=== PATIENT | female | born 1940 | race Caucasian/White ===

== ENCOUNTER → 2016-05-31 | Outpatient (CLI) | payer MEDICARE ==
--- NOTE | 2016-05-31 11:32 | REP ---
Duplex extremity venous ultrasound: Right lower extremity. History: History of DVT. Right lower extremity pain. Not currently on blood thinners. Findings: The deep veins are anechoic and fully compressible from the groin to the popliteal fossa in the right lower extremity. Color flow imaging is homogeneous. Spectral Doppler interrogation demonstrates intact respiratory variation in flow and normal manual augmentation of flow. There is no evidence of deep vein thrombosis. Impression: Negative right lower extremity duplex venous ultrasound. No evidence of deep vein thrombosis. Signed by Ernesto Aranda MD 05/31/2016 11:24 A
== END ==
LOC: M RAD 10:48
PROVIDERS: ATTEND Physician Assistant Medical
DX: M79.661 Pain in right lower leg (principal)

== ENCOUNTER → 2016-07-04 | Outpatient (REF) | payer MEDICARE ==
[2016-07-04 17:55] LABS: MEAN CORPUSCULAR HEMOGLOBIN 33.3 pg (27.0-33.0); MEAN CORPUSCULAR HGB CONC 30.1 g/dl (32.0-36.5); MEAN CORPUSCULAR VOLUME 110.7 fl (80.0-96.0); RED CELL DISTRIBUTION WIDTH 18.4 % (11.5-14.5)
[2016-07-04 18:28] LABS: ALBUMIN 3.8 GM/DL (3.2-5.2); ALBUMIN/GLOBULIN RATIO 1.19 (1.00-1.93); ALKALINE PHOSPHATASE 93 U/L (45-117); ALT/SGPT 22 U/L (12-78); ANION GAP 12 MEQ/L (8-16); AST/SGOT 32 U/L (15-37); BILIRUBIN,TOTAL 0.6 MG/DL (0.2-1.0); BLOOD UREA NITROGEN 15 MG/DL (7-18); CALCIUM LEVEL 9.1 MG/DL (8.8-10.2); CARBON DIOXIDE LEVEL 28 MEQ/L (21-32); CHLORIDE LEVEL 98 MEQ/L (98-107); CREATININE FOR GFR 0.65 MG/DL (0.55-1.02); GLOMERULAR FILTRATION RATE > 60.0 (>39); GLUCOSE, FASTING 218 MG/DL (83-110); POTASSIUM SERUM 4.3 MEQ/L (3.5-5.1); SODIUM LEVEL 138 MEQ/L (136-145)
== END ==
LOC: M LAB REF 16:20
PROVIDERS: ATTEND Surgery
DX: I87.311 Chronic venous hypertension (idiopathic) with ulcer of right lower extremity (principal); E11.9 Type 2 diabetes mellitus without complications
CPT/HCPCS: 11042; 11045; 36415; 80053; 83036; 85027; G0463

== ENCOUNTER → 2016-07-24 | Outpatient (CLI) | payer MEDICARE ==
--- NOTE | 2016-07-24 14:19 | REP ---
Right lower extremity deep vein duplex venous reflux study. There is no reflux identified in the common femoral vein or greater saphenous vein/common femoral vein junction. There is no reflux in the greater saphenous vein at the mid thigh or knee. There is no reflux in the lower saphenous vein. No reflux is identified in the femoral vein proximally in midportion or distally or in the popliteal vein. Impression: There is no evidence of venous reflux in the right lower extremity. Signed by Asael Berkowitz MD 07/24/2016 02:11 P
== END ==
LOC: M RAD 11:33
PROVIDERS: ATTEND Surgery
DX: I87.311 Chronic venous hypertension (idiopathic) with ulcer of right lower extremity (principal)

== ENCOUNTER → 2016-07-31 | Outpatient (REF) | payer MEDICARE | LOC: M LAB REF 16:40 | PROVIDERS: ATTEND Surgery | DX: E11.622 Type 2 diabetes mellitus with other skin ulcer (principal); L97.811 Non-pressure chronic ulcer of other part of right lower leg limited to breakdown of skin ==

== ENCOUNTER → 2016-08-02 | Outpatient (REF) | payer MEDICARE ==
[2016-08-02 13:08] LABS: ALBUMIN 3.4 GM/DL (3.2-5.2); BILIRUBIN,TOTAL 0.7 MG/DL (0.2-1.0); CALCIUM LEVEL 8.7 MG/DL (8.8-10.2); CREATININE FOR GFR 0.96 MG/DL (0.55-1.02); TOTAL PROTEIN 6.8 GM/DL (6.4-8.2)
[2016-08-02 13:09] LABS: POTASSIUM SERUM 5.5 MEQ/L (3.5-5.1)
== END ==
LOC: M SFHCADAM 07:51
PROVIDERS: ATTEND Physician Assistant Medical
DX: E78.4 Other hyperlipidemia (principal); E11.40 Type 2 diabetes mellitus with diabetic neuropathy, unspecified; E11.9 Type 2 diabetes mellitus without complications; E03.9 Hypothyroidism, unspecified

== ENCOUNTER → 2016-08-07 | Outpatient (CLI) | payer MEDICARE ==
[~2016-08-07] MED LIST: ISOVUE-370 76% 100ML VIAL (Q9967) As Ordered ONE
--- NOTE | 2016-08-11 09:13 | REP ---
Clinical: Chronic venous hypertension with right lower extremity ulcer. Technique: CT angiogram is performed from the lung bases through the lower extremities using 100 ml Isovue 370 intravenous contrast material. Axial images were obtained in the arterial phase of enhancement with subsequent coronal and sagittal re-formations as well as MIP and 3D reconstructions. Findings: There is a right renal mass which cannot be classified as cyst and requires evaluation. Finding is concerning for renal cell carcinoma. Few adjacent retroperitoneal lymph nodes are identified and measure up to 11 mm. Spleen demonstrates stable 2.2 cm hypodense lesion cyst with hemangioma. Pancreas, gallbladder, and bilateral adrenal glands are normal. The enteric system is without obstruction or acute inflammatory process. Pelvis demonstrates normal bladder and evidence for prior hysterectomy. No ascites. Mild atherosclerotic changes of the abdominal aorta to the bifurcation is appreciated with minimal scattered atheromatous plaque. Moderate amount of calcified plaque are identified at the origins of the celiac access and superior mesenteric artery - both of which are normal in caliber and enhancement. Solitary bilateral renal arteries are identified without plaque. The inferior mesenteric artery is identified below the level of the renal arteries and normal in caliber and enhancement. Right lower extremity demonstrates normal caliber and enhancement of the common femoral artery, profunda femoris, and proximal to mid superficial femoral artery. There is complete occlusion of the distal superficial femoral artery of approximately 5 cm length with reconstitution of the popliteal artery by collateral vessels. The popliteal artery appears narrowed/stenotic and poor patchy enhancement through the popliteal artery and trifurcation is noted through the calf to the level of the ankle with at best minimal continuation enhancement of the posterior tibial artery and patchy enhancement to the anterior tibial artery. Left lower extremity demonstrates normal caliber and enhancement of the common femoral artery, profunda femoris, and superficial femoral artery. There is gradual narrowing through the distal superficial femoral artery and popliteal artery due to noncalcified atheromatous plaquing and decreased patchy enhancement through the trifurcation is noted into the calf with diminished sporadic enhancement of the posterior tibial artery to the ankle and essentially no appropriate enhancement of the anterior tibial or peroneal arteries. Impression: 1. Right renal mass must be considered neoplastic and requires urology consultation. Small adjacent lymph nodes up to 11 mm noted. 2. Angiographic evaluation with decreased enhancement to the bilateral lower extremities as detailed above (right greater than left) including occlusion of the left distal superficial femoral artery. Signed by Kenny Hatch MD 08/11/2016 09:12 A
== END ==
LOC: M RAD 14:15
PROVIDERS: ATTEND Surgery
DX: I87.311 Chronic venous hypertension (idiopathic) with ulcer of right lower extremity (principal)
CPT/HCPCS: 75635; Q9967

== ENCOUNTER → 2016-08-28 | Outpatient (REF) | payer MEDICARE ==
[2016-08-28 19:44] LABS: ANION GAP 9 MEQ/L (8-16); BLOOD UREA NITROGEN 8 MG/DL (7-18); CALCIUM LEVEL 8.4 MG/DL (8.8-10.2); CARBON DIOXIDE LEVEL 29 MEQ/L (21-32); CHLORIDE LEVEL 96 MEQ/L (98-107); CREATININE FOR GFR 0.85 MG/DL (0.55-1.02); GLOMERULAR FILTRATION RATE > 60.0 (>39); GLUCOSE, FASTING 132 MG/DL (83-110); POTASSIUM SERUM 4.6 MEQ/L (3.5-5.1); SODIUM LEVEL 134 MEQ/L (136-145)
== END ==
LOC: M LAB REF 18:39
PROVIDERS: ATTEND Nurse Practitioner Family
DX: E87.6 Hypokalemia (principal)

== ENCOUNTER → 2016-09-04 | Outpatient (REF) | payer MEDICARE ==
[2016-09-04 18:58] LABS: MEAN CORPUSCULAR HEMOGLOBIN 29.1 pg (27.0-33.0); MEAN CORPUSCULAR HGB CONC 28.8 g/dl (32.0-36.5); MEAN CORPUSCULAR VOLUME 101.3 fl (80.0-96.0); PLATELET COUNT, AUTOMATED 223 k/mm3 (150-450); RED CELL DISTRIBUTION WIDTH 18.5 % (11.5-14.5); WHITE BLOOD COUNT 9.6 K/mm3 (4.0-10.0)
[2016-09-04 19:19] LABS: ALBUMIN 3.5 GM/DL (3.2-5.2); ALKALINE PHOSPHATASE 93 U/L (45-117); ALT/SGPT 14 U/L (12-78); ANION GAP 10 MEQ/L (8-16); AST/SGOT 33 U/L (15-37); BILIRUBIN,TOTAL 0.8 MG/DL (0.2-1.0); BLOOD UREA NITROGEN 15 MG/DL (7-18); CALCIUM LEVEL 8.6 MG/DL (8.8-10.2); CARBON DIOXIDE LEVEL 26 MEQ/L (21-32); CHLORIDE LEVEL 96 MEQ/L (98-107); CREATININE FOR GFR 0.78 MG/DL (0.55-1.02); GLOMERULAR FILTRATION RATE > 60.0 (>39); GLUCOSE, FASTING 162 MG/DL (83-110); POTASSIUM SERUM 5.1 MEQ/L (3.5-5.1); SODIUM LEVEL 132 MEQ/L (136-145)
[2016-09-04 20:39] LABS: BANDS 7 % (< 11); BASOPHILS 4 % (0-4); EOSINOPHILS 2 % (0-5)
[2016-09-04 20:40] LABS: ANISOCYTOSIS 2+; HYPOCHROMASIA 2+; OVALOCYTES 1+; POIKILOCYTOSIS 1+; POLYCHROMASIA 1+
[2016-09-04 20:41] LABS: ACANTHOCYTES 1+; SCHISTOCYTES 1+
== END ==
LOC: M SFHCADAM 11:26
PROVIDERS: ATTEND Physician Assistant Medical
DX: E11.622 Type 2 diabetes mellitus with other skin ulcer (principal); I10 Essential (primary) hypertension
CPT/HCPCS: 80053; 85025; G0463

== ENCOUNTER → 2016-12-11 | Outpatient (REF) | payer MEDICARE ==
[~2016-12-11] MED LIST changes: +ASPI81TA21 PO; +CEPH500C PO; +DRIS50002 PO; +DULO1CAP PO; +FURO40TA2 PO; +GABA-282 PO; +GLYB5TA; +HYDR-3713 PO; -ISOVUE-370 76% 100ML VIAL (Q9967) As Ordered ONE; +JENT2.5T5 PO; +LEVO50TA5 PO; +LIDO1OIN2 TOP; +LISI-538 PO; +MAGN500T5 PO; +NYST10PW TOP; +PROBCAP4 PO; +TOUJ1.2I SC; +VITMTA PO; +XARE20TA PO
[2016-12-11 20:00] LABS: ALBUMIN 3.7 GM/DL (3.2-5.2); ALBUMIN/GLOBULIN RATIO 0.93 (1.00-1.93); ALKALINE PHOSPHATASE 142 U/L (45-117); ALT/SGPT 24 U/L (12-78); ANION GAP 9 MEQ/L (8-16); AST/SGOT 28 U/L (15-37); BILIRUBIN,TOTAL 0.9 MG/DL (0.2-1.0); BLOOD UREA NITROGEN 22 MG/DL (7-18); CALCIUM LEVEL 9.1 MG/DL (8.8-10.2); CARBON DIOXIDE LEVEL 32 MEQ/L (21-32); CHLORIDE LEVEL 97 MEQ/L (98-107); CREATININE FOR GFR 0.77 MG/DL (0.55-1.02); GLOMERULAR FILTRATION RATE > 60.0 (>39); GLUCOSE, FASTING 216 MG/DL (83-110); POTASSIUM SERUM 4.2 MEQ/L (3.5-5.1); SODIUM LEVEL 138 MEQ/L (136-145); TOTAL PROTEIN 7.7 GM/DL (6.4-8.2)
== END ==
LOC: M SFHCADAM 15:56
PROVIDERS: ATTEND Physician Assistant Medical
DX: E11.40 Type 2 diabetes mellitus with diabetic neuropathy, unspecified (principal); G90.50 Complex regional pain syndrome I, unspecified; I10 Essential (primary) hypertension; G47.33 Obstructive sleep apnea (adult) (pediatric); I87.2 Venous insufficiency (chronic) (peripheral); D45 Polycythemia vera; Z79.82 Long term (current) use of aspirin; Z79.899 Other long term (current) drug therapy

== ENCOUNTER 2016-12-16 13:36 | Emergency (ER) | payer MEDICARE ==
[~2016-12-16] VITALS: Ht 152.4 cm; Wt 102.7 kg
[2016-12-16] MEDS ORDERED: XARE20TA PO (13:58)
[2016-12-16] MEDS ORDERED: HYDR-3713 PO (13:58)
[2016-12-16] MEDS ORDERED: LISI-538 PO (13:58)
[2016-12-16] MEDS ORDERED: LEVO50TA5 PO (13:58)
[2016-12-16] MEDS ORDERED: FURO40TA2 PO (13:58)
[2016-12-16] MEDS ORDERED: GLYB5TA (13:58)
[2016-12-16] MEDS ORDERED: JENT2.5T5 PO (13:58)
[2016-12-16] MEDS ORDERED: GABA-282 PO (13:58)
[2016-12-16] MEDS ORDERED: TOUJ1.2I SC (13:58)
[2016-12-16 16:35] LABS: VENOUS BASE EXCESS 1.8 (-2.0-2.0); VENOUS PARTIAL PRESSURE CO2 48.3 mmHg (38.0-50.0); VENOUS PARTIAL PRESSURE O2 85.8 mmHg (30.0-50.0); VENOUS TOTAL CO2 29.3 MEQ/L (24.0-28.0)
[2016-12-16 16:38] LABS: ADD MANUAL DIFFER YES; MEAN CORPUSCULAR HGB CONC 29.5 g/dl (32.0-36.5); PLATELET COUNT, AUTOMATED 196 k/mm3 (150-450); RED CELL DISTRIBUTION WIDTH 21.4 % (11.5-14.5); WHITE BLOOD COUNT 8.8 K/mm3 (4.0-10.0)
[2016-12-16 16:59] LABS: ALBUMIN/GLOBULIN RATIO 0.95 (1.00-1.93); ALKALINE PHOSPHATASE 149 U/L (45-117); ALT/SGPT 25 U/L (12-78); ANION GAP 15 MEQ/L (8-16); AST/SGOT 39 U/L (15-37); BILIRUBIN,DIRECT 0.4 MG/DL (0.0-0.2); BILIRUBIN,TOTAL 1.2 MG/DL (0.2-1.0); BLOOD UREA NITROGEN 21 MG/DL (7-18); CALCIUM LEVEL 9.2 MG/DL (8.8-10.2); CARBON DIOXIDE LEVEL 25 MEQ/L (21-32); CHLORIDE LEVEL 95 MEQ/L (98-107); CREATININE FOR GFR 0.81 MG/DL (0.55-1.02); GLOMERULAR FILTRATION RATE > 60.0 (>39); GLUCOSE, FASTING 344 MG/DL (83-110); POTASSIUM SERUM 4.8 MEQ/L (3.5-5.1); SODIUM LEVEL 135 MEQ/L (136-145); TOTAL PROTEIN 8.2 GM/DL (6.4-8.2)
[2016-12-16 17:28] LABS: BANDS 1 % (< 11); BASOPHILS 2 % (0-4); EOSINOPHILS 1 % (0-5)
[2016-12-16 17:29] LABS: ANISOCYTOSIS 2+; HYPOCHROMASIA 1+
[2016-12-16] MEDS ORDERED: NORCO, ANEXSIA 5/325MG TABLET (HYDROcodone/ACETAMINOPHEN) As Ordered ONE (18:02)
[2016-12-16] MEDS ORDERED: NORCO, ANEXSIA 5/325MG TABLET (HYDROcodone/ACETAMINOPHEN) PO ONE (18:15)
[2016-12-16] MEDS ORDERED: KETOROLAC 30 MG/ML VIAL (J1885) IV ONE (18:15)
[2016-12-16] MEDS ORDERED: KETOROLAC 60 MG/2 ML VIAL (J1885) IM ONE (18:30)
--- NOTE | 2016-12-16 19:20 | REPUSA ---
CLINICAL HISTORY: RUQ pain. TECHNIQUE: Realtime sonographic images were obtained in multiple projections. COMMENTS: The liver shows fatty infiltration without evidence of mass or defect. There is no intra or extrahep atic biliary ductal dilatation. The common bile duct measures 6 mm. The gallbladder is distended bu t without evidence of calculi. . Positive Rodriguez sign is reported. The gallbladder wall is not thick ened measuring 3 mm and there is no pericholecystic fluid. There is no abdominal ascites. The visualized portions of abdominal aorta present no abnormalities. There is limited visualization of the pancreas due to overlying bowel gases. The right kidney measur es 10.6 x 4.2 cm with an upper pole complex cyst measuring 4.1 x 3.6 x 3.5 cm. There is a lower pole right renal stone measuring 9 mm. IMPRESSION: 1. Fatty liver. 2. The gallbladder is distended but without evidence of calculi. . Positive Rodriguez sign is reported. Chronic acalculous cholecystitis is not excluded. Consider follow-up with hepatobiliary scan. 3. Right renal complex cyst. 4. Right renal stone.
[2016-12-16] MEDS ORDERED: GASTROGRAFIN SOLUTION 30ML (Q9963) As Ordered ONE (19:29)
[2016-12-16] MEDS ORDERED: GASTROGRAFIN SOLUTION 30ML PO ONE (19:30)
[2016-12-16 19:46] VITALS: BP 199/77
[2016-12-16] MEDS ORDERED: GASTROGRAFIN SOLUTION 30ML (Q9963) PO ONE (20:00)
--- NOTE | 2016-12-17 07:37 | REP ---
CHEST X-RAY AP LATERAL: 12/16/2016. Clinical history: Fatigue. Comparison: 07/31/2012, 08/10/2006 chest x-ray. Findings: Two views again show a dorsal column stimulator line but the stimulator unit appears to have been removed or relocated. The stimulator line courses across the posterior back into the cervical thoracic junction region into the lower cervical spine as before. Two-view show elevation of the right diaphragm. Heart is enlarged with left atrial and ventricular enlargement even allowing for portable technique. There is venous hypertension. I do not see definite effusion or dense consolidation. The aorta is mildly tortuous but normal for age. Airway intact. No widening of the mediastinum. Degenerative changes AC and glenohumeral joints as well as the spine. Impression: 1. Cardiomegaly with left atrial and ventricular enlargement and pulmonary venous hypertension. No lula edema, definite effusion or dense consolidation. 2. Elevated right diaphragm and a dorsal column stimulator lead again seen. Degenerative changes shoulders and spine. Signed by Jose Pruett MD 12/17/2016 08:06 A
--- NOTE | 2016-12-17 08:01 | ECGEPIP ---
Stationary ECG Study [facility] - ED Test Date: 2016-12-16 Pat Name: PORTILLO CHEEMA Department: Room: - Gender: F Oil Rigger: tk : [id number] Requested By: Shankar Riojas Order Number: [id number] Reading MD: Shankar Kline Measurements Intervals [place] Rate: 73 P: ID: 0 QRS: -4 QRSD: 88 T: 11 QT: 396 QTc: 439 Interpretive Statements SINUS RHYTHM WITH 1ST DEGREE AV BLOCK POSSIBLE ANTERIOR MYOCARDIAL INFARCTION, PROBABLY OLD Electronically Signed On 12-17-2016 8:00:58 EDT by Shankar Kline
--- NOTE | 2016-12-18 12:34 | ED PDOC ---
Post-Departure Follow-Up juliann chambers faxed formal report of us for fu Glil Arellano MD Dec 18, 2016 12:34
== END 2016-12-16 19:59 | disposition home or self-care (01) ==
LOC: M ED 13:36
DX: E11.65 Type 2 diabetes mellitus with hyperglycemia (principal); K80.50 Calculus of bile duct without cholangitis or cholecystitis without obstruction; I10 Essential (primary) hypertension
CPT/HCPCS: 36415; 71020; 76705; 80048; 80076; 81001; 82550; 82553; 82803; 83036; 84484; 85025; 93005; 93041; 94760; 96372; 96374; 99285; J1885; Q9963

== ENCOUNTER 2017-01-21 19:19 | Inpatient (IN) | payer MEDICARE ==
[~2017-01-21] VITALS: Ht 152.4 cm; Wt 106.5 kg
[~2017-01-21 19:19] MED LIST changes: -ASPI81TA21 PO; -CEPH500C PO; -DRIS50002 PO; -DULO1CAP PO; -LIDO1OIN2 TOP; -MAGN500T5 PO; -NYST10PW TOP; -PROBCAP4 PO; -VITMTA PO
[2017-01-21] MEDS ORDERED: ACETAMINOPHEN 325 MG TAB PO ONE (20:00)
[2017-01-21] MEDS ORDERED: ERTAPENEM SODIUM 1 GM in NS MINI-BAG PLUS 50 ML IV ONE (20:00)
[2017-01-21] MEDS ORDERED: VANCOMYCIN HCL 1,000 MG, VIAL MATE ADAPTER 1 EACH in D5W 250 ML IV ONE (20:00)
[2017-01-21] MEDS ORDERED: DRIS50002 PO (20:29)
[2017-01-21] MEDS ORDERED: PROBCAP4 PO (20:29)
[2017-01-21] MEDS ORDERED: MAGN500T5 PO (20:29)
[2017-01-21] MEDS ORDERED: LIDO1OIN2 TOP (20:29)
[2017-01-21] MEDS ORDERED: VITMTA PO (20:29)
[2017-01-21] MEDS ORDERED: ASPI81TA21 PO (20:29)
[2017-01-21 21:29] LABS: ADD MANUAL DIFFER YES; MEAN CORPUSCULAR HEMOGLOBIN 25.1 pg (27.0-33.0); MEAN CORPUSCULAR HGB CONC 28.1 g/dl (32.0-36.5); MEAN CORPUSCULAR VOLUME 89.6 fl (80.0-96.0); PLATELET COUNT, AUTOMATED 239 k/mm3 (150-450); RED CELL DISTRIBUTION WIDTH 21.6 % (11.5-14.5)
[2017-01-21 21:42] LABS: ALBUMIN 3.2 GM/DL (3.2-5.2); ALBUMIN/GLOBULIN RATIO 0.89 (1.00-1.93); ALKALINE PHOSPHATASE 137 U/L (45-117); ALT/SGPT 15 U/L (12-78); ANION GAP 9 MEQ/L (8-16); AST/SGOT 28 U/L (15-37); BILIRUBIN,DIRECT 0.6 MG/DL (0.0-0.2); BILIRUBIN,TOTAL 1.5 MG/DL (0.2-1.0); BLOOD UREA NITROGEN 20 MG/DL (7-18); CALCIUM LEVEL 8.5 MG/DL (8.8-10.2); CARBON DIOXIDE LEVEL 29 MEQ/L (21-32); CHLORIDE LEVEL 93 MEQ/L (98-107); CREATININE FOR GFR 0.84 MG/DL (0.55-1.02); GLOMERULAR FILTRATION RATE > 60.0 (>39); GLUCOSE, FASTING 215 MG/DL (83-110); POTASSIUM SERUM 4.6 MEQ/L (3.5-5.1); SODIUM LEVEL 131 MEQ/L (136-145); TOTAL PROTEIN 6.8 GM/DL (6.4-8.2)
[2017-01-21 22:34] LABS: ANISOCYTOSIS 3+; BANDS 2 % (< 11); BASOPHILS 2 % (0-4); HYPOCHROMASIA 1+; POLYCHROMASIA 1+
[2017-01-22] MEDS ORDERED: LIDOCAINE 5% OINT 30 GM TOP PRN (00:45)
[2017-01-22] MEDS ORDERED: PERCOCET 5MG/325MG TAB PO PRN (00:45)
[2017-01-22] MEDS ORDERED: ONDANSETRON 4MG/2ML VIAL (J2405) IV PRN (00:45)
[2017-01-22] MEDS ORDERED: GLUCAGON FOR INJ 1 MG VIAL (J1610) SC PRN (01:00)
[2017-01-22] MEDS ORDERED: DEXTROSE 50% 50 ML SYRINGE IV PRN (01:00)
[2017-01-22] MEDS ORDERED: GLUCOSE 4 GM CHEW TABLET PO PRN (01:00)
[2017-01-22] MEDS ORDERED: LEVEMIR (INSULIN DETEMIR) 1 UNITS/0.01ML SC ONE (01:00)
[2017-01-22] MEDS ORDERED: FUROSEMIDE 40 MG TAB PO ONE (01:00)
--- NOTE | 2017-01-22 01:05 | HPEPDOC ---
Medical History and Physical Date of Admission 01/22/17 History and Physical PRIMARY CARE PROVIDER: Dr. Barrera Dasilva ATTENDING: Dr. Barrera Dasilva CHIEF COMPLAINT: AMS HISTORY OF PRESENT ILLNESS: This is a 76 -year-old female with PMHx IDDM, HTN, Nonobstructive CAD ( diagnosed in August 2016 at [facility]), hypothyroidism, diastolic heart failure, obstructive sleep apnea on CPAP, chronic lower extremity venous stasis ulcers, polycythemia, hypertension, RSD with spinal stimulator who presents with lethargy. It was noted the patient has become increasingly lethargic and disoriented today as well as complaining of chills. She was hypoxic on presentation when the EMS arrived. In the ED she was febrile, with notable leukocytosis. She denies shortness of breath/cough/palpitations. No nausea/vomiting. She denied any abdominal pain however was tender to palpation on exam. The patient does have lower extremity ulcers, which she follows up with wound care in [place]. They requested that we not consult Dr. Pal as they were not very pleased with him in the past. PAST MEDICAL HISTORY: As per HPI PAST SURGICAL HISTORY: HYST, [place] release, stimulator, Port SOCIAL HISTORY: History of tobacco abuse, quit in the 1980s. Denies any alcohol or illicit drug use. Lives with family. FAMILY HISTORY: No history of heart or lung disease. ALLERGIES: Please see below. REVIEW OF SYSTEMS: HEENT: Denies sore throat/headache CARDIOVASCULAR: Denies chest pain/palpitations RESPIRATORY: Denies shortness of breath/cough GASTROINTESTINAL: denies nausea/vomiting GENITOURINARY: Denies dysuria/urinary urgency. MUSCULOSKELETAL: Denies myalgias/arthralgias NEUROLOGICAL: Denies any focal weakness HOME MEDICATIONS: Please see below. PHYSICAL EXAMINATION: Vitals: (see below) General: No acute distress, laying comfortably in bed. HEENT: Moist mucous membranes. Neck: No JVD or lymphadenopathy Cardiac: RRR Pulm: Diminished breath sounds at the bases b/l. Difficult to auscultate given her body habitus. Minimal accessory wheezing. No rhonchi. No stridor. No use of accessory muscles. Right chest port intact. No surrounding erythema or signs of infection however the patient does complain that it's tender around the region. Abd: Tenderness to palpation greatest at the left upper quadrant. Patient also has erythema with chronic skin changes of the lower abdominal region. This was tender on palpation, as well as warm. ND + BS Ext: Bilateral lower extremities with 1+ edema. Left lower extremity does appear more erythematous and warm than the right. Distal pulses are intact. No cyanosis. Chronic bilateral lower extremity ulcers, with no significant drainage. Dressings appear to have serous fluid. No pus. Lower extremities are tender to palpation. LABORATORY DATA: See below. IMAGING: CT chest/CT abdomen and pelvis/lower extremity ultrasound pending MICROBIOLOGY: Please see below. ASSESSMENT/PLAN: 1. Sepsis likely secondary to cellulitis as well as possible pneumonia. Notable fevers and leukocytosis. The patient is being started on broad-spectrum antibiotics pending further imaging. Although she does not have cough or sore throat, she does presents with dyspnea and hypoxia, with altered mental status raising suspicion for pneumonia. Blood cultures pending. ABG. Lactic acid within normal limits. Of note, the area surrounding her right port is tender however no erythema or signs of cellulitis/infection. She states the port has been bothering her since Sunday when she last had her blood drawn for her polycythemia. We will obtain blood cultures from the port as well. We may need to entertain removing the port pending her clinical progress. 2. Metabolic encephalopathy- likely secondary to sepsis. 3. Diabetes mellitus- continue insulin regimen. Sliding scale insulin. 4. Nonobstructive CAD continue home meds 5. History of polycythemia vera with phlebotomy every other week 6. History of chronic venous stasis ulcers- refusing consult by Dr. Couch. 7. JARAD on CPAP 8. RDS status post spinal cord stimulator 9. History of diastolic heart failure compensated 10. History of hypothyroidism on levothyroxine 11. Patient on Xarelto, likely for prophylaxis as pt is prone to hypercoag states given her polycythemia vera. Due to prophylaxis on Xarelto Patient followed by Dr. Barrera Dasilva starting 01/22/17 at 7 AM.. Vital Signs Vital Signs Date Time Temp Pulse Resp B/P (MAP) Pulse Ox O2 Delivery O2 Flow Rate FiO2 01/22/17 00:19 70 98 01/21/17 23:34 100.1 01/21/17 22:34 22 01/21/17 19:30 Room Air Laboratory Data Labs 24H Laboratory Tests 2 01/21/17 20:53: Neutrophils 89H, Band Neutrophils 2, Lymphocytes (Manual) 2L, Monocytes (Manual ) 5, Basophils (Manual) 2, Platelet Estimate NORMAL, Polychromasia 1+, Hypochromasia 1+, Anisocytosis 3+, Urine Appearance HAZY, Urine Color YELLOW, Urine pH 5.0, Urine Specific [place] 1.017, Urine Protein 1+H, Urine Glucose (UA ) NEGATIVE, Urine Ketones TRACEH, Urine Urobilinogen 0.2, Urine Bilirubin NEGATIVE, Urine Leukocyte Esterase NEGATIVE, Urine Blood NEGATIVE, Urine Nitrite NEGATIVE, Urine WBC (Auto) 6H, Urine RBC (Auto) 2, Urine Hyaline Casts ( Auto) 0, Urine Bacteria (Auto) NEGATIVE, Urine Squamous Epithelial Cells 5, Urine Sperm (Auto) , Anion Gap 9, Glomerular Filtration Rate > 60.0, Lactic Acid Level 1.6, Calcium Level 8.5L, Aspartate Amino Transf (AST/SGOT) 28, Alanine Aminotransferase (ALT/SGPT) 15, Alkaline Phosphatase 137H, Total Bilirubin 1.5H, Direct Bilirubin 0.6H, Total Protein 6.8, Albumin 3.2, Albumin/ Globulin Ratio 0.89L 01/21/17 23:52: Bedside Glucose (Misc Panel) 234H CBC/BMP Laboratory Tests 01/21/17 20:53 Red Blood Count 4.97, Mean Corpuscular Volume 89.6, Mean Corpuscular Hemoglobin 25.1 L, Mean Corpuscular Hemoglobin Concent 28.1 L, Red Cell Distribution Width 21.6 H Microbiology Microbiology 01/21/17 Blood Culture, Received Pending 01/21/17 Urine Culture, Received Pending Home Medications Scheduled (Jesusita Cueva) 300 Unit/Ml Inj, 20 UNITS SC QHS (Jentadueto 2.5-1000 mg) 1 Tab Tab, 1 TAB PO BIDWM Aspirin (Aspir-Low) 81 Mg Tab, 81 MG PO QHS Furosemide (Furosemide) 40 Mg Tab, 40 MG PO BID Gabapentin (Gabapentin) 300 Mg Cap, 300 MG PO TID Lactobacillus Acidophilus (Probiotic) 1 Cap Cap, 1 CAP PO DAILY Levothyroxine Sodium (Synthroid) 50 Mcg Tab, 50 MCG PO QAM Lisinopril (Lisinopril) 20 Mg Tab, 20 MG PO DAILY Magnesium Oxide (Magnesium) 500 Mg Tab, 500 MG PO QHS Multivitamins *[facility]* (Thera M Plus *[facility]*) 1 Tab Tab, 1 TAB PO QHS Rivaroxaban (Xarelto) 20 Mg Tab, 20 MG PO DAILY Vitamin D (Drisdol) 50,000 Unit Cap, 50,000 UNIT PO QWEEK Scheduled PRN Acetaminophen/Hydrocodone (Hydrocodone/Acetaminophen 5-325 mg) 1 Tab Tab, 1 TAB PO Q6H PRN for PAIN Lidocaine HCl (Lidocaine 5% Ointment) 1 Dose/35.44 Gm Oint, 1 DOSE TOP DAILY PRN for PAIN APPLIES TO LEG ULCERS Allergies Coded Allergies: Bee Venom (Verified Allergy, Unknown, 01/21/17) CARLTON BONILLA MD Jan 22, 2017 01:05
[2017-01-22] MEDS ORDERED: GASTROGRAFIN SOLUTION 30ML (Q9963) PO ONE ×3 (01:30→11:30)
[2017-01-22] MEDS ORDERED: ISOVUE-370 76% 100ML VIAL (Q9967) As Ordered ONE (01:44)
--- NOTE | 2017-01-22 01:45 | PHACANCOPD ---
PHARMACY VANCOMYCIN DOSING Pt Demographics Demographics Patient Age:76 , Weight:104.000 , Gender: female Adjusted Body Weight Date: 01/22/17, Adjusted Body Weight: [68.9] Kg Vancomycin Vancomycin indication: SEPSIS SECONDARY TO CELLULITIS,PNEUMONIA Vancomycin Target Ranges: 15-20 mcg/ml Vancomycin Load Y/N: No Load Dose Date Time Vancomycin Load Dose: Date: Time: Vancomycin Dose Date: 01/22/17. Current Vancomycin Dose: 750 MG IV Q12H] Intermittent Dosing?: No Labs Labs Laboratory Tests 01/21/17 20:53 Red Blood Count 4.97, Mean Corpuscular Volume 89.6, Mean Corpuscular Hemoglobin 25.1 L, Mean Corpuscular Hemoglobin Concent 28.1 L, Red Cell Distribution Width 21.6 H Micro Microbiology 01/22/17 Blood Culture, Received Pending 01/21/17 Blood Culture, Received Pending 01/21/17 Urine Culture, Received Pending Creatinine Clearance Date:01/22/17. Creatinine Clearance: [60]. CALCULATED Pending Labs VANCOMYCIN TROUGH DUE Assessment and Plan Maintaining Current Dose?: Yes Reason for dose change: No Dose Change Pharmacist Note Pharmacist Note Date: 01/22/17. Pharmacist note:76 YOF admitted with sepsis secondary to LEcellulitis and possible pneumonia.60",104kg,SCR0.84,calculated CRCL=60,allergy =bee vanom,receiving pip/tazo 3.375 gm iv p5xyitt and vancomycin per Pharmacy consult.Received Vanco 1 gm in ED@2300-will continue regimen at 750mg IV [id number] beginning at 1000. first trough is scheduled to be drawn - will continue to follow levels and labs [facility] Jan 22, 2017 01:45
[2017-01-22] MEDS: MORPHINE 2 MG/ML 1ML SYRINGE IV PRN ×2 (03:07→08:31)
[2017-01-22 05:53] LABS: ABG BASE EXCESS 2.8 (-2.0-2.0); ABG PARTIAL PRESSURE CO2 35.4 mmHg (35.0-45.0); ABG PARTIAL PRESSURE O2 89.4 mmHg (75.0-100.0); ABG TOTAL CO2 27.1 MEQ/L (23.0-31.0); ABG pH (ARTERIAL) 7.484 UNITS (7.350-7.450)
[2017-01-22] MEDS: LEVOTHYROXINE 50MCG TABLET (0.05MG) PO SCH (06:00)
[2017-01-22] MEDS: ACETAMINOPHEN TAB 650MG DOSE (2X325MG) PO PRN (06:15)
--- NOTE | 2017-01-22 07:17 | REP ---
Portable chest, 01/21/2017, 08:13 p.m., single AP view, patient sitting: Comparison is 12/16/2016. There has been interval placement of a right IJ Zdwoen-O-Umro with the tip in the superior vena cava in satisfactory location. There is no pneumothorax. Cardiomegaly is again noted, unchanged. There is pulmonary venous engorgement versus incomplete inspiratory effort as a change from the prior study. Elevation of the right hemidiaphragm and cervical spine spinal stimulator are again identified, unchanged. Signed by Asael Berkowitz MD 01/22/2017 07:09 A
[2017-01-22] MEDS: HumaLOG INSULIN (NovoLOG) PER UNIT SC SCH ×4 (08:39→20:20)
[2017-01-22 09:01] LABS: BASO # 0.1 K/mm3 (0.0-0.2); BASO % 0.8 % (0.0-1.0); EOS # 0.2 K/mm3 (0.0-0.50); EOS % 1.3 % (0.0-3.0); LARGE UNSTAINED CELL # 0.2 K/mm3 (0.0-0.4); LYMPH # 0.8 K/mm3 (1.5-4.5); LYMPH % 4.4 % (24.0-44.0); MEAN CORPUSCULAR HEMOGLOBIN 25.7 pg (27.0-33.0); MEAN CORPUSCULAR HGB CONC 28.7 g/dl (32.0-36.5); MEAN CORPUSCULAR VOLUME 89.5 fl (80.0-96.0); MONO # 0.4 K/mm3 (0.0-0.8); MONO % 2.9 % (0.0-5.0); NEUTROPHILS # 13.2 K/mm3 (1.8-7.7); NEUTROPHILS % 89.6 % (36.0-66.0); PLATELET COUNT, AUTOMATED 201 k/mm3 (150-450); RED CELL DISTRIBUTION WIDTH 21.8 % (11.5-14.5); WHITE BLOOD COUNT 14.7 K/mm3 (4.0-10.0)
[2017-01-22 09:03] LABS: ADD MORPHOLOGY? YES
[2017-01-22 09:12] VITALS: BP 134/64
[2017-01-22 09:18] LABS: ALBUMIN 2.9 GM/DL (3.2-5.2); ALBUMIN/GLOBULIN RATIO 0.88 (1.00-1.93); ALKALINE PHOSPHATASE 107 U/L (45-117); ALT/SGPT 15 U/L (12-78); ANION GAP 10 MEQ/L (8-16); AST/SGOT 31 U/L (15-37); BILIRUBIN,TOTAL 1.2 MG/DL (0.2-1.0); BLOOD UREA NITROGEN 22 MG/DL (7-18); CALCIUM LEVEL 8.5 MG/DL (8.8-10.2); CARBON DIOXIDE LEVEL 27 MEQ/L (21-32); CHLORIDE LEVEL 96 MEQ/L (98-107); CREATININE FOR GFR 0.81 MG/DL (0.55-1.02); GLOMERULAR FILTRATION RATE > 60.0 (>39); GLUCOSE, FASTING 252 MG/DL (83-110); POTASSIUM SERUM 4.3 MEQ/L (3.5-5.1); SODIUM LEVEL 133 MEQ/L (136-145); TOTAL PROTEIN 6.2 GM/DL (6.4-8.2)
[2017-01-22 09:21] LABS: ANISOCYTOSIS 2+
[2017-01-22] MEDS: RIVAROXABAN 20 MG TAB (XARELTO) PO SCH (09:54)
[2017-01-22] MEDS: LACTOBACILLUS ACIDOPHILUS CAP (BACID) PO SCH (09:55)
[2017-01-22] MEDS: GABAPENTIN 300 MG CAP PO SCH ×3 (09:55→20:21)
[2017-01-22] MEDS: FUROSEMIDE 40 MG TAB PO SCH ×3 (09:56→20:25)
[2017-01-22] MEDS: LISINOPRIL 20 MG TAB PO SCH (09:56)
[2017-01-22] MEDS: PIPERACILLIN/TAZOBACTAM SOD 3.375 GM in D5W MINI-BAG PLUS 50 ML IV SCH ×3 (09:56→20:21)
[2017-01-22] MEDS ORDERED: VANCOMYCIN HCL 1,000 MG, VIAL MATE ADAPTER 1 EACH in D5W 250 ML IV SCH (10:00)
[2017-01-22] MEDS ORDERED: VANCOMYCIN HCL 750 MG, VIAL MATE ADAPTER 1 EACH in D5W 250 ML IV SCH (10:00)
[2017-01-22] MEDS: NORCO, ANEXSIA 5/325MG TABLET (HYDROcodone/ACETAMINOPHEN) PO PRN ×4 (10:54→23:07)
--- NOTE | 2017-01-22 10:55 | IPNPDOC ---
Subjective Date Seen The patient was seen on 01/22/17. Subjective Chief Complaint/HPI The patient is a 76-year-old female admitted with a reason for visit of Sepsis. Events since last encounter c/o BLE pain. States chronic pain and unchanged c/w outpatient pain. Constitutional: Denies: Chills, Fever, Night Sweats ENT: Denies: Head Aches, Ear Pain, Dysphagia Skin: Denies: Rash, Lesions, Breakdown Pulmonary: Reports: Dyspnea Cardiovascular: Denies: Chest Pain, Palpitations, Orthopnea, Paroxysmal Noc. Dyspnea, Lt Headedness Gastrointestinal: Denies: Nausea, Vomiting, Abdominal Pain, Diarrhea, Constipation Genitourinary: Denies: Dysuria, Frequency, Incontinence, Retention Psych: Reports: Mood Normal, Anxiety, Denies: Depression, Memory Issues Objective Physical Examination General Exam: Positive: Alert, No Acute Distress, Negative: Cooperative (resistant and hesitant to tx) Eye Exam: Positive: PERRLA, Conjunctiva & lids normal, EOMI, Negative: Sclera icteric Neck Exam: Positive: Supple, Negative: JVD, thyromegaly Chest Exam: Positive: Clear to auscultation, Normal air movement Heart Exam: Positive: Rate Normal, Regular Rhythm, Normal S1, Normal S2, Murmurs (EDMUNDO 3/6), Negative: Rubs Telemetry: Positive: No significant arrhythmia Abdomen Exam: Positive: Normal bowel sounds, Soft, Negative: Tenderness, Hepatospenomegaly Extremity Exam: Positive: Normal pulses, Other (erythema and warmth on LLE up to knee. very tender on palpation), Negative: Clubbing, Cyanosis, Edema Skin Exam: Positive: Other skin issue (erythema to BLE. dressings intact) Psych Exam: Positive: Anxiety Assessment /Plan Problems (1) Sepsis Problem Text: D1 Zosyn/Vanco favor 2 soft-tissue infection (but obvious concern-DCS) 01/22 Tm 102 5:50, WBC 14.7 (20K) 01/21 LA 1.6 01/22 CT AP P 01/22 TTE P 01/22 CT chest: Lungs demonstrate cardiomegaly and chronic changes as described above with few scattered noncalcified nodules up to 4 mm which are nonspecific. Consider follow-up examination in 6 months. 2. Right renal mass incompletely evaluated. 3. Elevation of the right hemidiaphragm secondary to hepatomegaly. 01/22 resp panel - 01/21 BCX NG x2 01/21 UCX NG x 1 (2) RSD (reflex sympathetic dystrophy) Problem Text: DCS not functioning 01/22 increased [place] 5-10 q4H prn and + Gudelia-Colace BID (3) Cellulitis and abscess of left leg Status: Acute Problem Text: rx as per sepsis follows with [place] wound care-1M prior debrided L foot ulcer (4) JARAD (obstructive sleep apnea) Status: Chronic Problem Text: encouraged to bring in home CPAP (5) Diabetes mellitus with hyperglycemia, with long-term current use of insulin Status: Chronic Problem Text: HD Toujeo 20 units, Jentadueto 2.5/500 BID Continue Levemir 20 qhs here (6) Diastolic CHF Status: Chronic Response to Treatment: Stable Problem Text: Euvolemic on HD fur 40 BID (7) PVD (peripheral vascular disease) Status: Chronic Problem Text: 08/2016 arteriogram done at [facility]-per son severe R femoral stenosis- no intervention done-obtain records Plan/VTE VTE Prophylaxis Ordered?: Yes (Xarelto on Home Dose) VS, I&O, [facility] Vital Signs/I&O Vital Signs Date Time Temp Pulse Resp B/P (MAP) Pulse Ox O2 Delivery O2 Flow Rate FiO2 01/22/17 09:56 144/64 01/22/17 09:30 93 Room Air 01/22/17 09:12 8 01/22/17 09:12 2.0 01/22/17 09:12 99.0 73 I&O- Last 24 Hours up to 6 AM 01/22/17 06:00 Intake Total 1420 ml Output Total 850 ml Balance 570 ml Laboratory Data 24H LABS Laboratory Tests 2 01/21/17 20:53: Neutrophils 89H, Band Neutrophils 2, Lymphocytes (Manual) 2L, Monocytes (Manual ) 5, Basophils (Manual) 2, Platelet Estimate NORMAL, Polychromasia 1+, Hypochromasia 1+, Anisocytosis 3+, Urine Appearance HAZY, Urine Color YELLOW, Urine pH 5.0, Urine Specific [place] 1.017, Urine Protein 1+H, Urine Glucose (UA ) NEGATIVE, Urine Ketones TRACEH, Urine Urobilinogen 0.2, Urine Bilirubin NEGATIVE, Urine Leukocyte Esterase NEGATIVE, Urine Blood NEGATIVE, Urine Nitrite NEGATIVE, Urine WBC (Auto) 6H, Urine RBC (Auto) 2, Urine Hyaline Casts ( Auto) 0, Urine Bacteria (Auto) NEGATIVE, Urine Squamous Epithelial Cells 5, Urine Sperm (Auto) , Anion Gap 9, Glomerular Filtration Rate > 60.0, Lactic Acid Level 1.6, Calcium Level 8.5L, Aspartate Amino Transf (AST/SGOT) 28, Alanine Aminotransferase (ALT/SGPT) 15, Alkaline Phosphatase 137H, Total Bilirubin 1.5H, Direct Bilirubin 0.6H, Total Protein 6.8, Albumin 3.2, Albumin/ Globulin Ratio 0.89L 01/21/17 23:52: Bedside Glucose (Misc Panel) 234H 01/22/17 05:36: Blood Gas Bicarbonate Standard 27.0H, Arterial Blood pH 7.484H, Arterial Blood Partial Pressure CO2 35.4, Arterial Blood Partial Pressure O2 89.4, Arterial Blood Total CO2 27.1, Arterial Blood HCO3 26.0, Arterial Blood Base Excess 2.8H , Arterial Blood Oxygen Saturation 97.4 01/22/17 08:15: Bedside Glucose (Misc Panel) 280H 01/22/17 08:36: White Blood Count 14.7H, Red Blood Count 4.53, Hemoglobin 11.6L, Hematocrit 40.5 , Mean Corpuscular Volume 89.5, Mean Corpuscular Hemoglobin 25.7L, Mean Corpuscular Hemoglobin Concent 28.7L, Red Cell Distribution Width 21.8H, Platelet Count 201, Neutrophils (%) (Auto) 89.6H, Lymphocytes (%) (Auto) 4.4L, Monocytes (%) (Auto) 2.9, Eosinophils (%) (Auto) 1.3, Basophils (%) (Auto) 0.8, Neutrophils # (Auto) 13.2H, Lymphocytes # (Auto) 0.8L, Monocytes # (Auto) 0.4, Eosinophils # (Auto) 0.2, Basophils # (Auto) 0.1, Large Unclassified Cells % 1.0 , Large Unclassified Cells # 0.2, Platelet Estimate NORMAL, Anisocytosis 2+, Anion Gap 10, Glomerular Filtration Rate > 60.0, Blood Urea Nitrogen 22H, Creatinine 0.81, Sodium Level 133L, Potassium Level 4.3, Chloride Level 96L, Carbon Dioxide Level 27, Calcium Level 8.5L, Aspartate Amino Transf (AST/SGOT) 31, Alanine Aminotransferase (ALT/SGPT) 15, Alkaline Phosphatase 107, Total Bilirubin 1.2H, Total Protein 6.2L, Albumin 2.9L, C-Reactive Protein, Quantitative 14.00H, Albumin/Globulin Ratio 0.88L CBC/BMP Laboratory Tests 01/21/17 20:53 Red Blood Count 4.97, Mean Corpuscular Volume 89.6, Mean Corpuscular Hemoglobin 25.1 L, Mean Corpuscular Hemoglobin Concent 28.1 L, Red Cell Distribution Width 21.6 H 01/22/17 08:36 Red Blood Count 4.53, Mean Corpuscular Volume 89.5, Mean Corpuscular Hemoglobin 25.7 L, Mean Corpuscular Hemoglobin Concent 28.7 L, Red Cell Distribution Width 21.8 H, Neutrophils (%) (Auto) 89.6 H, Lymphocytes (%) (Auto) 4.4 L, Monocytes ( %) (Auto) 2.9, Eosinophils (%) (Auto) 1.3, Basophils (%) (Auto) 0.8, Neutrophils # (Auto) 13.2 H, Lymphocytes # (Auto) 0.8 L, Monocytes # (Auto) 0.4 , Eosinophils # (Auto) 0.2, Basophils # (Auto) 0.1, Calcium Level 8.5 L, Aspartate Amino Transf (AST/SGOT) 31, Alanine Aminotransferase (ALT/SGPT) 15, Alkaline Phosphatase 107, Total Bilirubin 1.2 H, Total Protein 6.2 L, Albumin 2.9 L Microbiology Microbiology 01/22/17 Blood Culture, Received Pending 01/21/17 Blood Culture, Received Pending 01/21/17 Urine Culture, Received Pending Kellen Mclaughlin Jan 22, 2017 10:55 Daniel Muñoz M.D. Jan 22, 2017 14:59
[2017-01-22] MEDS ORDERED: GASTROGRAFIN SOLUTION 30ML PO ONE (11:00)
[2017-01-22 12:00] VITALS: BP 132/61
--- NOTE | 2017-01-22 14:43 | REP ---
Clinical: Dyspnea and fever. Findings: Cardiomegaly is appreciated along with mild possibly chronic pulmonary vascular congestion. Atherosclerotic changes to the thoracic aorta and coronary arteries noted without aortic aneurysm. Chronic, age-related interstitial changes are appreciated without consolidation, pleural effusion or significant mass. Lingular scarring is suggested. Few small noncalcified nodules are identified measuring up to 4.5 mm diameter and are nonspecific. No obvious adenopathy. Tracheobronchial tree is patent. Surrounding musculoskeletal structures demonstrate age-related changes without focal osseous abnormality. Coronal re-formations demonstrate elevated right hemidiaphragm secondary to hepatomegaly. Limited evaluation of the upper abdomen includes 4 cm incompletely evaluated right renal mass. The bilateral adrenal glands are normal. Impression: 1. Lungs demonstrate cardiomegaly and chronic changes as described above with few scattered noncalcified nodules up to 4 mm which are nonspecific. Consider follow-up examination in 6 months. 2. Right renal mass incompletely evaluated. 3. Elevation of the right hemidiaphragm secondary to hepatomegaly. Signed by Kenny Hatch MD 01/22/2017 02:35 P
--- NOTE | 2017-01-22 14:51 | REP ---
Clinical: Sepsis. Comparison: 08/07/2016, 11/06/2012 Findings: Hepatosplenomegaly is again appreciated along with hypodensity in the spleen which appears relatively stable when compared to 2013. No focal hepatic lesion identified by noncontrast evaluation. The gallbladder is distended but without evidence for acute cholecystitis. Pancreas bilateral adrenal glands and left kidney appear normal. Right kidney includes 4.7 cm mass-like lesion which appears to have increased from prior examinations and is concerning for renal cell carcinoma. The enteric system is without obstruction or acute inflammatory process. Colonic diverticula noted without acute diverticulitis. Pelvis demonstrates normal bladder and evidence for prior hysterectomy. No ascites. No free air. Small scattered mesenteric and retroperitoneal lymph nodes measuring up to approximately 13 mm cannot be excluded. Osseous structures demonstrate degenerative changes without focal osseous abnormality Impression: 1. Hepatosplenomegaly with relatively stable hypodense lesion in the spleen similar to 2013. 2. 4.7 cm mass lesion in the right kidney warrants further investigation to exclude renal cell carcinoma. 3. Few scattered mesenteric and retroperitoneal lymph nodes measuring up to 13 mm are of uncertain etiology. 4. Colonic diverticula without acute diverticulitis. Signed by Kenny Hatch MD 01/22/2017 02:44 P
[2017-01-22] MEDS ORDERED: NORCO, ANEXSIA 5/325MG TABLET (HYDROcodone/ACETAMINOPHEN) PO PRN (15:30)
[2017-01-22 16:00] VITALS: BP 141/63
[2017-01-22 19:51] VITALS: BP 118/57
[2017-01-22] MEDS: MULTIVITAMINS/MINERALS THERAP 1 TAB PO SCH (20:20)
[2017-01-22] MEDS: DOCUSATE SODIUM 100 MG CAP PO SCH (20:20)
[2017-01-22] MEDS: ASPIRIN 81 MG ENTERIC TAB PO SCH (20:20)
[2017-01-22] MEDS: LEVEMIR (INSULIN DETEMIR) 1 UNITS/0.01ML SC SCH (20:20)
--- NOTE | 2017-01-22 20:55 | ECHO ---
DATE OF PROCEDURE: 01/22/2017 REFERRING PHYSICIAN: Dr. Parsons INDICATION: Sepsis. HEIGHT: 152 cm WEIGHT: 104 kg Dimensions IVS: 1.0 LV: 4.8 LVPW: 1.0 LA: 4.3 Aorta: 2.5 FINDINGS: The study is of difficult technical quality corresponding to patient's body habitus. The patient is in sinus rhythm. Left ventricle is of normal size and systolic function. I estimate ejection fraction (EF) around 65-70%. Based on technical limitations of the study, subtle wall motion abnormalities certainly cannot be ruled out. Right ventricle is dilated and appears at least mildly hypokinetic. Left atrium appears at least mildly enlarged, right atrium is severely enlarged. Aortic valve is mildly sclerotic. There are also degenerative abnormalities of mitral valve with mitral annular calcifications. Tricuspid valve appears normal. Pulmonic valve was not well seen. Trivial pericardial effusion is noted. Inferior vena cava is mildly dilated. Aortic root is normal. Aortic arch and abdominal aorta were not well seen. Doppler interrogation of aortic valve reveals no insufficiency and trivial stenosis (mean gradient 10 mmHg). There is trace mitral insufficiency and approximately moderate tricuspid insufficiency. Calculated pulmonary artery pressure is at least in 60s or even higher corresponding to moderately severe pulmonary hypertension. Mitral inflow pattern and tissue Doppler imaging of mitral annulus reveal grade 2 diastolic dysfunction (E prime velocities of septal and lateral mitral annulus are 5.2 and 6.0 cm/s respectively). CONCLUSIONS: 1. Study is of fair technical quality. 2. Normal left ventricle (LV) size and systolic function, grade 2 diastolic dysfunction. 3. Dilated mildly hypokinetic right ventricle. 4. High central venous pressure and at least moderately severe pulmonary hypertension. 5. Mild aortic stenosis. COMMENTS: Subacute bacterial endocarditis (SBE) prophylaxis is not recommended. [facility]
--- NOTE | 2017-01-22 21:47 | PHACANCOPD ---
PHARMACY VANCOMYCIN DOSING Pt Demographics Demographics Patient Age:76 , Weight:104.400 , Gender: female Adjusted Body Weight Date: 01/22/17, Adjusted Body Weight: [68.9] Kg Events Past 24 Hours Events Past 24 Hours: NO: Dialysis, Diuretic Therapy, Change in CrCl, Fever, Elevation in WBC, Pending Diagnostics, Pending Procedures, Other Vancomycin Vancomycin indication: SEPSIS SECONDARY TO CELLULITIS,PNEUMONIA Vancomycin Target Ranges: 15-20 mcg/ml Vancomycin Load Y/N: No Load Dose Date Time Vancomycin Load Dose: Date: Time: Vancomycin Dose Date: 01/22/17. Current Vancomycin Dose: 1000 MG IV Q12H] Intermittent Dosing?: No Labs Labs Item Value Date Time White Blood Count 14.7 K/mm3 H 01/22/1736 Creatinine 0.81 MG/DL 01/22/17835 Vancomycin Level Trough 11.0 UG/ML 01/22/172054 Vital Signs Label Value Date Time Patient Temperature 97.6 degrees F 01/22/171950 Temperature Source Temporal 01/22/171950 Micro Microbiology 01/22/17 Blood Culture, Received Pending 01/21/17 Blood Culture - Preliminary, Resulted No growth after 24 hours . All specim... 01/22/17 Respiratory Virus Panel (PCR) (VISHAL) - Final, Complete 01/21/17 Urine Culture, Received Pending Creatinine Clearance Date:01/22/17. Creatinine Clearance: [60]. CALCULATED Pending Labs VANCOMYCIN TROUGH DUE 01/23@2099 Assessment and Plan Maintaining Current Dose?: No Reason for dose change: Trough too low Pharmacist Note Pharmacist Note Date: 01/22/17. Pharmacist note:Trough of 11 is below target range. Dose increased to 1000mg q12 with a trough ordered for 01-23 @2099. Will continue to monitor and make adjustments as needed. ENRRIQUE ESCAMILLA PHARMACY Jan 22, 2017 21:47
[2017-01-22] MEDS: VANCOMYCIN HCL 1,000 MG, VIAL MATE ADAPTER 1 EACH in D5W 250 ML IV SCH (21:50)
[2017-01-22 23:09] VITALS: BP 118/75
[2017-01-23] MEDS: PIPERACILLIN/TAZOBACTAM SOD 3.375 GM in D5W MINI-BAG PLUS 50 ML IV SCH ×4 (02:04→21:16)
[2017-01-23 03:56] VITALS: BP 113/56
[2017-01-23 05:05] LABS: ADD MANUAL DIFFER YES; MEAN CORPUSCULAR HEMOGLOBIN 25.2 pg (27.0-33.0); MEAN CORPUSCULAR HGB CONC 28.2 g/dl (32.0-36.5); MEAN CORPUSCULAR VOLUME 89.6 fl (80.0-96.0); PLATELET COUNT, AUTOMATED 192 k/mm3 (150-450); RED CELL DISTRIBUTION WIDTH 21.8 % (11.5-14.5); WHITE BLOOD COUNT 10.7 K/mm3 (4.0-10.0)
[2017-01-23 05:23] LABS: ALBUMIN 2.5 GM/DL (3.2-5.2); ALBUMIN/GLOBULIN RATIO 0.64 (1.00-1.93); BILIRUBIN,TOTAL 1.1 MG/DL (0.2-1.0); CALCIUM LEVEL 8.6 MG/DL (8.8-10.2); CREATININE FOR GFR 0.97 MG/DL (0.55-1.02); GLOMERULAR FILTRATION RATE 59.1 (>39); MAGNESIUM LEVEL 1.7 MG/DL (1.8-2.4); POTASSIUM SERUM 3.8 MEQ/L (3.5-5.1); TOTAL PROTEIN 6.4 GM/DL (6.4-8.2)
[2017-01-23 05:43] LABS: ANISOCYTOSIS 2+; BANDS 1 % (< 11); BASOPHILS 2 % (0-4); EOSINOPHILS 2 % (0-5); HYPOCHROMASIA 3+; POIKILOCYTOSIS 2+
[2017-01-23 05:44] LABS: OVALOCYTES 2+; TOXIC GRANULATION 1+; TOXIC VACUOLATION 1+
[2017-01-23] MEDS: LEVOTHYROXINE 50MCG TABLET (0.05MG) PO SCH (06:01)
[2017-01-23] MEDS: NORCO, ANEXSIA 5/325MG TABLET (HYDROcodone/ACETAMINOPHEN) PO PRN ×3 (06:07→15:08)
--- NOTE | 2017-01-23 07:57 | IPNPDOC ---
Subjective Date Seen The patient was seen on 01/23/17. Subjective Chief Complaint/HPI The patient is a 76-year-old female admitted with a reason for visit of Sepsis. Events since last encounter Afebrile. PT involved, evaluating mobility. Pain controlled with [place]. dressing changes started per outpatient orders. CT abd/pelvis and CT chest completed. See reports in patient docs. Constitutional: Denies: Chills, Fever, Night Sweats ENT: Denies: Head Aches, Ear Pain, Dysphagia Skin: Reports: Breakdown (ulcerations to BLE) Pulmonary: Denies: Dyspnea, Cough Cardiovascular: Denies: Chest Pain, Palpitations, Orthopnea, Paroxysmal Noc. Dyspnea, Lt [place]ness Gastrointestinal: Denies: Nausea, Vomiting, Abdominal Pain, Diarrhea, Constipation Objective Physical Examination General Exam: Positive: Alert, No Acute Distress, Negative: Cooperative (resistant and hesitant to tx) Eye Exam: Positive: PERRLA, Conjunctiva & lids normal, EOMI, Negative: Sclera icteric Neck Exam: Positive: Supple, Negative: JVD, thyromegaly Chest Exam: Positive: Clear to auscultation, Normal air movement Heart Exam: Positive: Rate Normal, Regular Rhythm, Normal S1, Normal S2, Murmurs (EDMUNDO 3/6), Negative: Rubs Telemetry: Positive: No significant arrhythmia Abdomen Exam: Positive: Normal bowel sounds, Soft, Negative: Tenderness, Hepatospenomegaly Extremity Exam: Positive: Normal pulses, Other (erythema and warmth on LLE up to knee. very tender on palpation), Negative: Clubbing, Cyanosis, Edema Skin Exam: Positive: Other skin issue (erythema to BLE. dressings intact) Psych Exam: Positive: Anxiety Assessment /Plan Problems (1) Sepsis Problem Text: D2 Zosyn/Vanco favor 2 soft-tissue infection (but obvious concern-DCS) 01/23/17: WBC 10.7. Afebrile. 01/22 Tm 102 5:50, WBC 14.7 (20K) 01/21 LA 1.6 01/22 CT AP: . Hepatosplenomegaly with relatively stable hypodense lesion in the spleen similar to 2013. 2. 4.7 cm mass lesion in the right kidney warrants further investigation to exclude renal cell carcinoma. 3. Few scattered mesenteric and retroperitoneal lymph nodes measuring up to 13 mm are of uncertain etiology. 4. Colonic diverticula without acute diverticulitis. 01/22 TTE: 1. Study is of fair technical quality. 2. Normal left ventricle (LV) size and systolic function, grade 2 diastolic dysfunction. 3. Dilated mildly hypokinetic right ventricle. 4. High central venous pressure and at least moderately severe pulmonary hypertension. 5. Mild aortic stenosis. 01/22 CT chest: Lungs demonstrate cardiomegaly and chronic changes as described above with few scattered noncalcified nodules up to 4 mm which are nonspecific. Consider follow-up examination in 6 months. 2. Right renal mass incompletely evaluated. 3. Elevation of the right hemidiaphragm secondary to hepatomegaly. 01/22 resp panel - 01/21 BCX NG x2 01/21 UCX NG x 1 (2) RSD (reflex sympathetic dystrophy) Problem Text: 01/23/17: appears to have improved comfort today. DCS not functioning 01/22 increased [place] 5-10 q4H prn and + Gudelia-Colace BID (3) Cellulitis and abscess of left leg Status: Acute Problem Text: rx as per sepsis follows with [facility] wound care-1M prior debrided L foot ulcer (4) JARAD (obstructive sleep apnea) Status: Chronic Problem Text: 01/23/17: using at home CPAP. encouraged to bring in home CPAP (5) Diabetes mellitus with hyperglycemia, with long-term current use of insulin Status: Chronic Problem Text: HD Toujeo 20 units, Jentadueto 2.5/500 BID Continue Levemir 20 qhs here (6) Diastolic CHF Status: Chronic Response to Treatment: Stable Problem Text: Euvolemic on HD fur 40 BID (7) PVD (peripheral vascular disease) Status: Chronic Problem Text: 08/2016 arteriogram done at [facility]-per son severe R femoral stenosis- no intervention done-obtain records (8) Renal mass, right Problem Text: Noted on CT abd/pelvis. Family aware of follow with Dr. Rojas, urology in [place]. (9) Physical deconditioning Status: Acute Problem Text: 01/23 not safe per PT Plan/VTE VTE Prophylaxis Ordered?: Yes (Xarelto on Home Dose) VS, I&O, 24H, Fishbone Vital Signs/I&O Vital Signs Date Time Temp Pulse Resp B/P (MAP) Pulse Ox O2 Delivery O2 Flow Rate FiO2 01/23/17 06:07 18 Room Air 01/23/17 03:56 97.2 67 113/56 (75) 90 01/22/17 09:12 2.0 I&O- Last 24 Hours up to 6 AM 01/23/17 06:00 Intake Total 2140 ml Output Total 2600 ml Balance -460 ml Laboratory Data 24H LABS Laboratory Tests 2 01/22/17 08:15: Bedside Glucose (Misc Panel) 280H 01/22/17 08:36: White Blood Count 14.7H, Red Blood Count 4.53, Hemoglobin 11.6L, Hematocrit 40.5 , Mean Corpuscular Volume 89.5, Mean Corpuscular Hemoglobin 25.7L, Mean Corpuscular Hemoglobin Concent 28.7L, Red Cell Distribution Width 21.8H, Platelet Count 201, Neutrophils (%) (Auto) 89.6H, Lymphocytes (%) (Auto) 4.4L, Monocytes (%) (Auto) 2.9, Eosinophils (%) (Auto) 1.3, Basophils (%) (Auto) 0.8, Neutrophils # (Auto) 13.2H, Lymphocytes # (Auto) 0.8L, Monocytes # (Auto) 0.4, Eosinophils # (Auto) 0.2, Basophils # (Auto) 0.1, Large Unclassified Cells % 1.0 , Large Unclassified Cells # 0.2, Platelet Estimate NORMAL, Anisocytosis 2+, Anion Gap 10, Glomerular Filtration Rate > 60.0, Blood Urea Nitrogen 22H, Creatinine 0.81, Sodium Level 133L, Potassium Level 4.3, Chloride Level 96L, Carbon Dioxide Level 27, Calcium Level 8.5L, Aspartate Amino Transf (AST/SGOT) 31, Alanine Aminotransferase (ALT/SGPT) 15, Alkaline Phosphatase 107, Total Bilirubin 1.2H, Total Protein 6.2L, Albumin 2.9L, C-Reactive Protein, Quantitative 14.00H, Albumin/Globulin Ratio 0.88L 01/22/17 11:56: Bedside Glucose (Misc Panel) 172H 01/22/17 16:58: Bedside Glucose (Misc Panel) 213H 01/22/17 17:56: C-Reactive Protein, Quantitative 16.90H 01/22/17 20:18: Bedside Glucose (Misc Panel) 198H 01/22/17 20:55: C-Reactive Protein, Quantitative 15.30H, Vancomycin Level Trough 11.0 01/23/17 04:46: C-Reactive Protein, Quantitative 13.80H, Neutrophils 76H, Band Neutrophils 1, Lymphocytes (Manual) 10L, Monocytes (Manual) 9H, Eosinophils (Manual) 2, Basophils (Manual) 2, Toxic Granulation 1+, Toxic Vacuolation 1+, Platelet Estimate NORMAL, Hypochromasia 3+, Poikilocytosis 2+, Anisocytosis 2+, Ovalocytes 2+, Anion Gap 9, Glomerular Filtration Rate 59.1, Blood Urea Nitrogen 26H, Creatinine 0.97, Sodium Level 137, Potassium Level 3.8, Chloride Level 98, Carbon Dioxide Level 30, Calcium Level 8.6L, Aspartate Amino Transf ( AST/SGOT) 34, Alanine Aminotransferase (ALT/SGPT) 15, Alkaline Phosphatase 88, Total Bilirubin 1.1H, Total Protein 6.4, Albumin 2.5L, Magnesium Level 1.7L, Albumin/Globulin Ratio 0.64L CBC/BMP Laboratory Tests 01/22/17 08:36 Red Blood Count 4.53, Mean Corpuscular Volume 89.5, Mean Corpuscular Hemoglobin 25.7 L, Mean Corpuscular Hemoglobin Concent 28.7 L, Red Cell Distribution Width 21.8 H, Neutrophils (%) (Auto) 89.6 H, Lymphocytes (%) (Auto) 4.4 L, Monocytes ( %) (Auto) 2.9, Eosinophils (%) (Auto) 1.3, Basophils (%) (Auto) 0.8, Neutrophils # (Auto) 13.2 H, Lymphocytes # (Auto) 0.8 L, Monocytes # (Auto) 0.4 , Eosinophils # (Auto) 0.2, Basophils # (Auto) 0.1, Calcium Level 8.5 L, Aspartate Amino Transf (AST/SGOT) 31, Alanine Aminotransferase (ALT/SGPT) 15, Alkaline Phosphatase 107, Total Bilirubin 1.2 H, Total Protein 6.2 L, Albumin 2.9 L 01/23/17 04:46 Red Blood Count 4.85, Mean Corpuscular Volume 89.6, Mean Corpuscular Hemoglobin 25.2 L, Mean Corpuscular Hemoglobin Concent 28.2 L, Red Cell Distribution Width 21.8 H, Calcium Level 8.6 L, Aspartate Amino Transf (AST/SGOT) 34, Alanine Aminotransferase (ALT/SGPT) 15, Alkaline Phosphatase 88, Total Bilirubin 1.1 H, Total Protein 6.4, Albumin 2.5 L Microbiology Microbiology 01/22/17 Blood Culture - Preliminary, Resulted No growth after 24 hours . All specim... 01/21/17 Blood Culture - Preliminary, Resulted No growth after 24 hours . All specim... 01/22/17 Respiratory Virus Panel (PCR) (VISHAL) - Final, Complete 01/21/17 Urine Culture, Received Pending Kellen Mclaughlin Jan 23, 2017 07:57 Daniel Muñoz M.D. Jan 23, 2017 22:00
[2017-01-23 08:00] VITALS: BP 149/65
[2017-01-23] MEDS: HumaLOG INSULIN (NovoLOG) PER UNIT SC SCH ×4 (08:07→20:36)
[2017-01-23] MEDS: DOCUSATE SODIUM 100 MG CAP PO SCH ×2 (08:10→21:15)
[2017-01-23] MEDS: GABAPENTIN 300 MG CAP PO SCH ×3 (08:10→21:15)
[2017-01-23] MEDS: LACTOBACILLUS ACIDOPHILUS CAP (BACID) PO SCH (08:10)
[2017-01-23] MEDS: FUROSEMIDE 40 MG TAB PO SCH ×2 (08:10→15:06)
[2017-01-23] MEDS: RIVAROXABAN 20 MG TAB (XARELTO) PO SCH (08:10)
[2017-01-23] MEDS: LISINOPRIL 20 MG TAB PO SCH (08:12)
[2017-01-23] MEDS: VANCOMYCIN HCL 1,000 MG, VIAL MATE ADAPTER 1 EACH in D5W 250 ML IV SCH ×2 (10:30→22:28)
[2017-01-23 12:00] VITALS: BP 156/68
[2017-01-23 15:35] VITALS: BP 169/77
[2017-01-23 18:00] VITALS: BP 156/82
[2017-01-23 20:20] VITALS: BP 163/86
[2017-01-23] MEDS: MULTIVITAMINS/MINERALS THERAP 1 TAB PO SCH (21:14)
[2017-01-23] MEDS: LEVEMIR (INSULIN DETEMIR) 1 UNITS/0.01ML SC SCH (21:15)
[2017-01-23] MEDS: ASPIRIN 81 MG ENTERIC TAB PO SCH (21:15)
--- NOTE | 2017-01-23 22:16 | PHACANCOPD ---
PHARMACY VANCOMYCIN DOSING Pt Demographics Demographics Patient Age:76 , Weight:104.500 , Gender: female Adjusted Body Weight Date: 01/22/17, Adjusted Body Weight: [68.9] Kg Events Past 24 Hours Events Past 24 Hours: NO: Dialysis, Diuretic Therapy, Change in CrCl, Fever, Elevation in WBC, Pending Diagnostics, Pending Procedures, Other Vancomycin Vancomycin indication: SEPSIS SECONDARY TO CELLULITIS,PNEUMONIA Vancomycin Target Ranges: 15-20 mcg/ml Vancomycin Load Y/N: No Load Dose Date Time Vancomycin Load Dose: Date: Time: Vancomycin Dose Date: 01/23/17. Current Vancomycin Dose: 1000 MG IV Q12H] Intermittent Dosing?: No Labs Labs Item Value Date Time White Blood Count 10.7 K/mm3 H 01/23/17445 Creatinine 0.97 MG/DL 01/23/17445 Vancomycin Level Trough 17.3 UG/ML 01/23/172110 Vital Signs Label Value Date Time Patient Temperature 97.0 degrees F 01/23/172019 Temperature Source Temporal 01/23/172019 Micro Microbiology 01/22/17 Blood Culture - Preliminary, Resulted No growth after 24 hours . All specim... 01/21/17 Blood Culture - Preliminary, Resulted No Growth after 48 hours. All Specime... 01/22/17 Respiratory Virus Panel (PCR) (VISHAL) - Final, Complete 01/21/17 Urine Culture, Received Pending Creatinine Clearance Date:01/22/17. Creatinine Clearance: [60]. CALCULATED Assessment and Plan Maintaining Current Dose?: Yes Reason for dose change: No Dose Change Pharmacist Note Pharmacist Note Date: 01/22/17. Pharmacist note:Trough of 17.3 is within target range. will continue current dosing. Will continue to monitor and make adjustments as needed. ENRRIQUE ESCAMILLA PHARMACY Jan 23, 2017 22:16
[2017-01-24] MEDS: NORCO, ANEXSIA 5/325MG TABLET (HYDROcodone/ACETAMINOPHEN) PO PRN ×3 (01:43→20:54)
[2017-01-24 02:10] VITALS: BP 182/80
[2017-01-24] MEDS: PIPERACILLIN/TAZOBACTAM SOD 3.375 GM in D5W MINI-BAG PLUS 50 ML IV SCH (03:35)
[2017-01-24] MEDS: MORPHINE 2 MG/ML 1ML SYRINGE IV PRN (05:10)
[2017-01-24 05:22] LABS: ADD MANUAL DIFFER YES; MEAN CORPUSCULAR HEMOGLOBIN 26.1 pg (27.0-33.0); MEAN CORPUSCULAR HGB CONC 29.6 g/dl (32.0-36.5); MEAN CORPUSCULAR VOLUME 88.2 fl (80.0-96.0); PLATELET COUNT, AUTOMATED 214 k/mm3 (150-450); RED CELL DISTRIBUTION WIDTH 21.8 % (11.5-14.5); WHITE BLOOD COUNT 8.4 K/mm3 (4.0-10.0)
[2017-01-24 05:30] VITALS: BP 150/70
[2017-01-24 05:46] LABS: ALBUMIN 2.6 GM/DL (3.2-5.2); ALBUMIN/GLOBULIN RATIO 0.72 (1.00-1.93); ALKALINE PHOSPHATASE 130 U/L (45-117); ALT/SGPT 23 U/L (12-78); ANION GAP 6 MEQ/L (8-16); AST/SGOT 45 U/L (15-37); BILIRUBIN,TOTAL 0.9 MG/DL (0.2-1.0); BLOOD UREA NITROGEN 28 MG/DL (7-18); CALCIUM LEVEL 8.3 MG/DL (8.8-10.2); CARBON DIOXIDE LEVEL 32 MEQ/L (21-32); CHLORIDE LEVEL 99 MEQ/L (98-107); CREATININE FOR GFR 0.87 MG/DL (0.55-1.02); GLOMERULAR FILTRATION RATE > 60.0 (>39); GLUCOSE, FASTING 231 MG/DL (83-110); MAGNESIUM LEVEL 1.7 MG/DL (1.8-2.4); POTASSIUM SERUM 4.1 MEQ/L (3.5-5.1); SODIUM LEVEL 137 MEQ/L (136-145); TOTAL PROTEIN 6.2 GM/DL (6.4-8.2)
[2017-01-24 06:02] LABS: BASOPHILS 3 % (0-4); HYPOCHROMASIA 1+
[2017-01-24 06:03] LABS: ANISOCYTOSIS 2+; OVALOCYTES 1+; POIKILOCYTOSIS 1+
[2017-01-24] MEDS: LEVOTHYROXINE 50MCG TABLET (0.05MG) PO SCH (06:05)
[2017-01-24] MEDS: HumaLOG INSULIN (NovoLOG) PER UNIT SC SCH ×4 (08:36→20:54)
[2017-01-24] MEDS: RIVAROXABAN 20 MG TAB (XARELTO) PO SCH (08:37)
[2017-01-24] MEDS: LACTOBACILLUS ACIDOPHILUS CAP (BACID) PO SCH (08:37)
[2017-01-24] MEDS: DOCUSATE SODIUM 100 MG CAP PO SCH ×2 (08:37→20:53)
[2017-01-24] MEDS: FUROSEMIDE 40 MG TAB PO SCH ×2 (08:38→15:01)
[2017-01-24] MEDS: GABAPENTIN 300 MG CAP PO SCH ×3 (08:38→20:52)
--- NOTE | 2017-01-24 08:45 | IPNPDOC ---
Subjective Date Seen The patient was seen on 01/24/17. Subjective Chief Complaint/HPI The patient is a 76-year-old female admitted with a reason for visit of Sepsis. Events since last encounter c/o SOB and wheezing this am. Denies other c/o Constitutional: Denies: Chills, Fever, Night Sweats Pulmonary: Reports: Other Symptoms (Wheeze) Gastrointestinal: Denies: Nausea, Vomiting, Abdominal Pain, Diarrhea, Constipation Genitourinary: Denies: Dysuria, Frequency, Incontinence, Retention Psych: Reports: Mood Normal, Denies: Depression, Memory Issues Objective Physical Examination General Exam: Positive: Alert, No Acute Distress, Negative: Cooperative (resistant and hesitant to tx) Eye Exam: Positive: PERRLA, Conjunctiva & lids normal, EOMI, Negative: Sclera icteric Neck Exam: Positive: Supple, Negative: JVD, thyromegaly Chest Exam: Positive: Clear to auscultation, Normal air movement Heart Exam: Positive: Rate Normal, Regular Rhythm, Normal S1, Normal S2, Murmurs (EDMUNDO 3/6), Negative: Rubs Telemetry: Positive: No significant arrhythmia Abdomen Exam: Positive: Normal bowel sounds, Soft, Negative: Tenderness, Hepatospenomegaly Extremity Exam: Positive: Normal pulses, Other (erythema and warmth on LLE up to knee. very tender on palpation), Negative: Clubbing, Cyanosis, Edema Skin Exam: Positive: Other skin issue (erythema to BLE. dressings intact) Psych Exam: Positive: Anxiety Assessment /Plan Problems (1) Sepsis Problem Text: 01/24/17: change to po antibiotic today. + proteus in urine: Sensitive to Cefazolin. Started on Keflex 500 mg po tid, will cover skin and soft tissue infections. D2 Zosyn/Vanco favor 2 soft-tissue infection (but obvious concern-DCS) 01/23/17: WBC 10.7. Afebrile. 01/22 Tm 102 5:50, WBC 14.7 (20K) 01/21 LA 1.6 01/22 CT AP: . Hepatosplenomegaly with relatively stable hypodense lesion in the spleen similar to 2013. 2. 4.7 cm mass lesion in the right kidney warrants further investigation to exclude renal cell carcinoma. 3. Few scattered mesenteric and retroperitoneal lymph nodes measuring up to 13 mm are of uncertain etiology. 4. Colonic diverticula without acute diverticulitis. 01/22 TTE: 1. Study is of fair technical quality. 2. Normal left ventricle (LV) size and systolic function, grade 2 diastolic dysfunction. 3. Dilated mildly hypokinetic right ventricle. 4. High central venous pressure and at least moderately severe pulmonary hypertension. 5. Mild aortic stenosis. 01/22 CT chest: Lungs demonstrate cardiomegaly and chronic changes as described above with few scattered noncalcified nodules up to 4 mm which are nonspecific. Consider follow-up examination in 6 months. 2. Right renal mass incompletely evaluated. 3. Elevation of the right hemidiaphragm secondary to hepatomegaly. 01/22 resp panel - 01/21 BCX NG x2 01/21 UCX NG x 1 (2) RSD (reflex sympathetic dystrophy) Problem Text: 01/23/17: appears to have improved comfort today. DCS not functioning 01/22 increased [place] 5-10 q4H prn and + Gudelia-Colace BID (3) Cellulitis and abscess of left leg Status: Acute Problem Text: 01/24/17: change to po antibiotic today. + proteus in urine: Sensitive to Cefazolin. Started on Keflex 500 mg po tid, will cover skin and soft tissue infections rx as per sepsis follows with [facility] wound care-1M prior debrided L foot ulcer (4) JARAD (obstructive sleep apnea) Status: Chronic Problem Text: 01/23/17: using at home CPAP. encouraged to bring in home CPAP (5) Diabetes mellitus with hyperglycemia, with long-term current use of insulin Status: Chronic Problem Text: HD Toujeo 20 units, Jentadueto 2.5/500 BID Continue Levemir 20 qhs here (6) Diastolic CHF Status: Chronic Response to Treatment: Stable Problem Text: Euvolemic on HD fur 40 BID (7) PVD (peripheral vascular disease) Status: Chronic Problem Text: 08/2016 arteriogram done at [facility]-per son severe R femoral stenosis- no intervention done-obtain records (8) Renal mass, right Problem Text: Noted on CT abd/pelvis. Family aware of follow with Dr. Rojas, urology in [place]. (9) Physical deconditioning Status: Acute Problem Text: 01/23 not safe per PT (10) Urinary tract infection due to Proteus Problem Text: 01/24/17: change to po antibiotic today. + proteus in urine: Sensitive to Cefazolin. Started on Keflex 500 mg po tid, will cover skin and soft tissue infections Plan/VTE VTE Prophylaxis Ordered?: Yes (Xarelto on Home Dose) Plan Family Medicine Attending Note: I saw and examined Ms. Hendricks today; I discussed her care with CARITO Moses and I agree with her note as documented. Leg dressings were replaced this morning. Patient has no complaints this morning other than fatigue. Will monitor on PO Keflex as above , and await PT recommendations. (KES) VS, I&O, 24H, Fishbone Vital Signs/I&O Vital Signs Date Time Temp Pulse Resp B/P (MAP) Pulse Ox O2 Delivery O2 Flow Rate FiO2 01/24/17 05:30 97.2 68 20 150/70 (96) 92 Room Air 01/22/17 09:12 2.0 I&O- Last 24 Hours up to 6 AM 01/24/17 05:59 Intake Total 2163 ml Output Total 1675 ml Balance 488 ml Laboratory Data 24H LABS Laboratory Tests 2 01/23/17 12:14: Bedside Glucose (Misc Panel) 251H, C-Reactive Protein, Quantitative 12.00H 01/23/17 17:16: Bedside Glucose (Misc Panel) 243H 01/23/17 18:04: C-Reactive Protein, Quantitative 10.40H 01/23/17 20:25: Bedside Glucose (Misc Panel) 222H 01/23/17 21:11: Vancomycin Level Trough 17.3 01/24/17 05:08: Neutrophils 81H, Lymphocytes (Manual) 12L, Monocytes (Manual) 4, Basophils ( Manual) 3, Platelet Estimate NORMAL, Hypochromasia 1+, Poikilocytosis 1+, Anisocytosis 2+, Ovalocytes 1+, Anion Gap 6L, Glomerular Filtration Rate > 60.0 , Blood Urea Nitrogen 28H, Creatinine 0.87, Sodium Level 137, Potassium Level 4.1, Chloride Level 99, Carbon Dioxide Level 32, Calcium Level 8.3L, Aspartate Amino Transf (AST/SGOT) 45H, Alanine Aminotransferase (ALT/SGPT) 23, Alkaline Phosphatase 130H, Total Bilirubin 0.9, Total Protein 6.2L, Albumin 2.6L, Magnesium Level 1.7L, Albumin/Globulin Ratio 0.72L CBC/BMP Laboratory Tests 01/24/17 05:08 Red Blood Count 4.69, Mean Corpuscular Volume 88.2, Mean Corpuscular Hemoglobin 26.1 L, Mean Corpuscular Hemoglobin Concent 29.6 L, Red Cell Distribution Width 21.8 H, Calcium Level 8.3 L, Aspartate Amino Transf (AST/SGOT) 45 H, Alanine Aminotransferase (ALT/SGPT) 23, Alkaline Phosphatase 130 H, Total Bilirubin 0.9 , Total Protein 6.2 L, Albumin 2.6 L Microbiology Microbiology 01/22/17 Blood Culture - Preliminary, Resulted No Growth after 48 hours. All Specime... 01/21/17 Blood Culture - Preliminary, Resulted No Growth after 48 hours. All Specime... 01/22/17 Respiratory Virus Panel (PCR) (VISHAL) - Final, Complete 01/21/17 Urine Culture - Final, Complete Proteus Mirabilis Kellen Mclaughlin Jan 24, 2017 08:45 ANDREY RAE MD Jan 24, 2017 10:43
[2017-01-24] MEDS: SODIUM CHLORIDE 0.9% INJ 10 ML SYR IV SCH (08:53)
[2017-01-24] MEDS: LISINOPRIL 20 MG TAB PO SCH (08:53)
[2017-01-24] MEDS: CEPHALEXIN 500 MG CAP PO SCH ×3 (08:59→22:01)
[2017-01-24 10:00] VITALS: BP 138/74
[2017-01-24] MEDS ORDERED: MAG SULF 1GM/100ML (MAG RUN) 1 GM in APPROPRIATE DILUENT 1 EA IV ONE (10:15)
[2017-01-24] MEDS: MIRALAX *UNIT DOSE* 17GM PACKET PO SCH (11:36)
[2017-01-24] MEDS: SENNA 8.6 MG TAB (SENOKOT) PO SCH (11:37)
[2017-01-24] MEDS: SODIUM CHLORIDE 0.9% INJ 10 ML SYR IV PRN (13:06)
[2017-01-24 14:00] VITALS: BP 138/68
--- NOTE | 2017-01-24 14:58 | REP ---
Clinical: Shortness of breath. Comparison: 01/21/2017. Findings: Perihilar and bibasilar opacities with indistinct pulmonary vasculature consistent with interstitial edema and pulmonary vascular congestion. Effusion cannot be excluded. No pneumothorax. [id number] with tip in the SVC. Cardiomegaly again noted. Impression: Opacities compatible with pulmonary vascular congestion and interstitial edema. Signed by Kenny Hatch MD 01/24/2017 02:50 P
[2017-01-24] MEDS ORDERED: NORCO, ANEXSIA 5/325MG TABLET (HYDROcodone/ACETAMINOPHEN) PO PRN (15:00)
[2017-01-24 18:00] VITALS: BP 130/58
[2017-01-24] MEDS: MULTIVITAMINS/MINERALS THERAP 1 TAB PO SCH (20:52)
[2017-01-24] MEDS: ASPIRIN 81 MG ENTERIC TAB PO SCH (20:54)
[2017-01-24] MEDS: LEVEMIR (INSULIN DETEMIR) 1 UNITS/0.01ML SC SCH (20:55)
[2017-01-24 22:00] VITALS: BP 148/60
[2017-01-25] MEDS: LEVOTHYROXINE 50MCG TABLET (0.05MG) PO SCH (05:14)
[2017-01-25] MEDS: NORCO, ANEXSIA 5/325MG TABLET (HYDROcodone/ACETAMINOPHEN) PO PRN ×4 (05:16→20:38)
[2017-01-25] MEDS: CEPHALEXIN 500 MG CAP PO SCH ×3 (05:16→22:28)
[2017-01-25 05:31] LABS: BASO # 0.2 K/mm3 (0.0-0.2); BASO % 1.8 % (0.0-1.0); EOS # 0.3 K/mm3 (0.0-0.50); EOS % 3.7 % (0.0-3.0); LARGE UNSTAINED CELL # 0.3 K/mm3 (0.0-0.4); LARGE UNSTAINED CELL % 3.5 % (0.0-4.0); LYMPH # 1.2 K/mm3 (1.5-4.5); MEAN CORPUSCULAR HEMOGLOBIN 25.9 pg (27.0-33.0); MEAN CORPUSCULAR HGB CONC 28.8 g/dl (32.0-36.5); MONO # 0.5 K/mm3 (0.0-0.8); MONO % 5.7 % (0.0-5.0); NEUTROPHILS # 6.7 K/mm3 (1.8-7.7); NEUTROPHILS % 72.3 % (36.0-66.0); PLATELET COUNT, AUTOMATED 212 k/mm3 (150-450); RED CELL DISTRIBUTION WIDTH 21.7 % (11.5-14.5); WHITE BLOOD COUNT 9.2 K/mm3 (4.0-10.0)
[2017-01-25 06:00] VITALS: BP 130/60
[2017-01-25 06:13] LABS: ALBUMIN 2.8 GM/DL (3.2-5.2); ALBUMIN/GLOBULIN RATIO 0.74 (1.00-1.93); ALKALINE PHOSPHATASE 168 U/L (45-117); ALT/SGPT 29 U/L (12-78); ANION GAP 9 MEQ/L (8-16); AST/SGOT 48 U/L (15-37); BILIRUBIN,TOTAL 0.9 MG/DL (0.2-1.0); BLOOD UREA NITROGEN 29 MG/DL (7-18); CALCIUM LEVEL 8.5 MG/DL (8.8-10.2); CARBON DIOXIDE LEVEL 30 MEQ/L (21-32); CHLORIDE LEVEL 98 MEQ/L (98-107); GLOMERULAR FILTRATION RATE > 60.0 (>39); GLUCOSE, FASTING 216 MG/DL (83-110); POTASSIUM SERUM 4.4 MEQ/L (3.5-5.1); SODIUM LEVEL 137 MEQ/L (136-145); TOTAL PROTEIN 6.6 GM/DL (6.4-8.2)
[2017-01-25] MEDS: HumaLOG INSULIN (NovoLOG) PER UNIT SC SCH ×4 (08:05→20:39)
[2017-01-25] MEDS: SENNA 8.6 MG TAB (SENOKOT) PO SCH (08:05)
[2017-01-25] MEDS: FUROSEMIDE 40 MG TAB PO SCH ×2 (08:05→14:18)
[2017-01-25] MEDS: MIRALAX *UNIT DOSE* 17GM PACKET PO SCH (08:05)
[2017-01-25] MEDS: RIVAROXABAN 20 MG TAB (XARELTO) PO SCH (08:05)
[2017-01-25] MEDS: GABAPENTIN 300 MG CAP PO SCH ×3 (08:05→20:37)
[2017-01-25] MEDS: LACTOBACILLUS ACIDOPHILUS CAP (BACID) PO SCH (08:05)
[2017-01-25] MEDS: DOCUSATE SODIUM 100 MG CAP PO SCH ×2 (08:06→20:37)
[2017-01-25] MEDS: SODIUM CHLORIDE 0.9% INJ 10 ML SYR IV SCH (08:06)
[2017-01-25] MEDS: LISINOPRIL 20 MG TAB PO SCH (08:06)
--- NOTE | 2017-01-25 08:27 | IPNPDOC ---
Subjective Date Seen The patient was seen on 01/25/17. Subjective Chief Complaint/HPI The patient is a 76-year-old female admitted with a reason for visit of Sepsis. Events since last encounter Feeling well. Would like to go home in am. Denies c/o. No BM in 5 days. + flatus , denies abdominal pain Constitutional: Denies: Chills, Fever, Night Sweats ENT: Denies: Head Aches, Ear Pain, Dysphagia Skin: Reports: Breakdown Pulmonary: Denies: Dyspnea, Cough Cardiovascular: Denies: Chest Pain, Palpitations, Orthopnea, Paroxysmal Noc. Dyspnea, Lt Headedness Genitourinary: Denies: Dysuria, Frequency, Incontinence, Retention Psych: Reports: Mood Normal, Denies: Depression, Memory Issues Objective Physical Examination General Exam: Positive: Alert, Cooperative, No Acute Distress Eye Exam: Positive: PERRLA, Conjunctiva & lids normal, EOMI, Negative: Sclera icteric Neck Exam: Positive: Supple, Negative: JVD, thyromegaly Chest Exam: Positive: Clear to auscultation, Normal air movement Heart Exam: Positive: Rate Normal, Regular Rhythm, Normal S1, Normal S2, Murmurs (EDMUNDO 3/6), Negative: Rubs Telemetry: Positive: No significant arrhythmia Abdomen Exam: Positive: Normal bowel sounds, Soft, Negative: Tenderness, Hepatospenomegaly Extremity Exam: Positive: Normal pulses, Other (erythema and warmth on LLE up to knee. very tender on palpation), Negative: Clubbing, Cyanosis, Edema Skin Exam: Positive: Other skin issue (erythema to BLE. dressings intact) Psych Exam: Positive: Anxiety Assessment /Plan Problems (1) Physical deconditioning Status: Acute Problem Text: 01/25 refuses PT eval 01/23, 01/24 not safe per PT (2) Urinary tract infection due to Proteus Problem Text: rx as per sepsis 01/21 UCX 30K P. mirabilis (3) Sepsis Problem Text: D1 cephalexin po previous Zosyn/Vanco x 3D) favor 2 soft-tissue infection 01/25/17. Continues to show improvement. Anticipate DC home in am. 01/24/17: change to po antibiotic today. + proteus in urine: Sensitive to Cefazolin. Started on Keflex 500 mg po tid, will cover skin and soft tissue infections. 01/23/17: WBC 10.7. Afebrile. 01/22 Tm 102 5:50, WBC 14.7 (20K) 01/21 LA 1.6 01/22 CT AP: . Hepatosplenomegaly with relatively stable hypodense lesion in the spleen similar to 2013. 2. 4.7 cm mass lesion in the right kidney warrants further investigation to exclude renal cell carcinoma. 3. Few scattered mesenteric and retroperitoneal lymph nodes measuring up to 13 mm are of uncertain etiology. 4. Colonic diverticula without acute diverticulitis. 01/22 TTE: 1. Study is of fair technical quality. 2. Normal left ventricle (LV) size and systolic function, grade 2 diastolic dysfunction. 3. Dilated mildly hypokinetic right ventricle. 4. High central venous pressure and at least moderately severe pulmonary hypertension. 5. Mild aortic stenosis. 01/22 CT chest: Lungs demonstrate cardiomegaly and chronic changes as described above with few scattered noncalcified nodules up to 4 mm which are nonspecific. Consider follow-up examination in 6 months. 2. Right renal mass incompletely evaluated. 3. Elevation of the right hemidiaphragm secondary to hepatomegaly. 01/22 resp panel - 01/21 BCX NG x2 01/21 UCX NG x 1 (4) RSD (reflex sympathetic dystrophy) Problem Text: 01/23/17: appears to have improved comfort today. DCS not functioning 01/22 increased [place] 5-10 q4H prn and + Gudelia-Colace BID (5) Cellulitis and abscess of left leg Status: Acute Problem Text: 01/24/17: change to po antibiotic today. + proteus in urine: Sensitive to Cefazolin. Started on Keflex 500 mg po tid, will cover skin and soft tissue infections rx as per sepsis follows with [facility]-1M prior debrided L foot ulcer (6) JARAD (obstructive sleep apnea) Status: Chronic Problem Text: 01/23/17: using at home CPAP. encouraged to bring in home CPAP (7) Diabetes mellitus with hyperglycemia, with long-term current use of insulin Status: Chronic Problem Text: HD Toujeo 20 units, Jentadueto 2.5/500 BID Continue Levemir 20 qhs here (8) Diastolic CHF Status: Chronic Response to Treatment: Stable Problem Text: Euvolemic on HD fur 40 BID (9) PVD (peripheral vascular disease) Status: Chronic Problem Text: 08/2016 arteriogram done at [facility]-per son severe R femoral stenosis- no intervention done-obtain records (10) Renal mass, right Problem Text: Noted on CT abd/pelvis. Family aware of follow with Dr. Rojas, urology in [place]. Plan/VTE VTE Prophylaxis Ordered?: Yes (Xarelto on Home Dose) VS, I&O, 24H, Fishbone Vital Signs/I&O Vital Signs Date Time Temp Pulse Resp B/P (MAP) Pulse Ox O2 Delivery O2 Flow Rate FiO2 01/25/17 08:06 130/60 01/25/17 06:00 97.6 63 18 93 NIPPV (BIPAP/CPAP) 01/22/17 09:12 2.0 I&O- Last 24 Hours up to 6 AM 01/25/17 06:00 Intake Total 1240 ml Output Total 1750 ml Balance -510 ml Laboratory Data 24H LABS Laboratory Tests 2 01/24/17 11:43: Bedside Glucose (Misc Panel) 206H 01/24/17 16:56: Bedside Glucose (Misc Panel) 223H 01/24/17 20:17: Bedside Glucose (Misc Panel) 231H 01/25/17 05:10: White Blood Count 9.2, Red Blood Count 4.96, Hemoglobin 12.9, Hematocrit 44.6, Mean Corpuscular Volume 90.0, Mean Corpuscular Hemoglobin 25.9L, Mean Corpuscular Hemoglobin Concent 28.8L, Red Cell Distribution Width 21.7H, Platelet Count 212, Neutrophils (%) (Auto) 72.3H, Lymphocytes (%) (Auto) 13.0L, Monocytes (%) (Auto) 5.7H, Eosinophils (%) (Auto) 3.7H, Basophils (%) (Auto) 1.8H, Neutrophils # (Auto) 6.7, Lymphocytes # (Auto) 1.2L, Monocytes # (Auto) 0.5, Eosinophils # (Auto) 0.3, Basophils # (Auto) 0.2, Large Unclassified Cells % 3.5, Large Unclassified Cells # 0.3, Anion Gap 9, Glomerular Filtration Rate > 60.0, Blood Urea Nitrogen 29H, Creatinine 0.80, Sodium Level 137, Potassium Level 4.4, Chloride Level 98, Carbon Dioxide Level 30, Calcium Level 8.5L, Aspartate Amino Transf (AST/SGOT) 48H, Alanine Aminotransferase (ALT/SGPT) 29, Alkaline Phosphatase 168H, Total Bilirubin 0.9, Total Protein 6.6, Albumin 2.8L , Magnesium Level 2.0, Albumin/Globulin Ratio 0.74L CBC/BMP Laboratory Tests 01/25/17 05:10 Red Blood Count 4.96, Mean Corpuscular Volume 90.0, Mean Corpuscular Hemoglobin 25.9 L, Mean Corpuscular Hemoglobin Concent 28.8 L, Red Cell Distribution Width 21.7 H, Neutrophils (%) (Auto) 72.3 H, Lymphocytes (%) (Auto) 13.0 L, Monocytes (%) (Auto) 5.7 H, Eosinophils (%) (Auto) 3.7 H, Basophils (%) (Auto) 1.8 H, Neutrophils # (Auto) 6.7, Lymphocytes # (Auto) 1.2 L, Monocytes # (Auto) 0.5, Eosinophils # (Auto) 0.3, Basophils # (Auto) 0.2, Calcium Level 8.5 L, Aspartate Amino Transf (AST/SGOT) 48 H, Alanine Aminotransferase (ALT/SGPT) 29, Alkaline Phosphatase 168 H, Total Bilirubin 0.9, Total Protein 6.6, Albumin 2.8 L Microbiology Microbiology 01/22/17 Blood Culture - Preliminary, Resulted No Growth after 72 hours. All specime... 01/21/17 Blood Culture - Preliminary, Resulted No Growth after 72 hours. All specime... 01/22/17 Respiratory Virus Panel (PCR) ([facility]) - Final, Complete 01/21/17 Urine Culture - Final, Complete Proteus Mirabilis Kellen Mclaughlin Jan 25, 2017 08:27 Daniel Muñoz M.D. Jan 25, 2017 17:10
[2017-01-25 10:00] VITALS: BP 118/58
[2017-01-25 14:00] VITALS: BP 115/58
[2017-01-25 18:00] VITALS: BP 135/58
[2017-01-25] MEDS: ASPIRIN 81 MG ENTERIC TAB PO SCH (20:37)
[2017-01-25] MEDS: MULTIVITAMINS/MINERALS THERAP 1 TAB PO SCH (20:37)
[2017-01-25] MEDS: LEVEMIR (INSULIN DETEMIR) 1 UNITS/0.01ML SC SCH (20:40)
[2017-01-25 22:00] VITALS: BP 138/60
[2017-01-26 02:00] VITALS: BP 142/62
[2017-01-26] MEDS: NORCO, ANEXSIA 5/325MG TABLET (HYDROcodone/ACETAMINOPHEN) PO PRN ×5 (02:40→22:04)
[2017-01-26] MEDS: SODIUM CHLORIDE 0.9% INJ 10 ML SYR IV PRN (05:56)
[2017-01-26] MEDS: CEPHALEXIN 500 MG CAP PO SCH ×3 (05:56→21:52)
[2017-01-26] MEDS: LEVOTHYROXINE 50MCG TABLET (0.05MG) PO SCH (05:56)
[2017-01-26 06:00] VITALS: BP 144/62
[2017-01-26 06:31] LABS: BASO # 0.1 K/mm3 (0.0-0.2); BASO % 1.5 % (0.0-1.0); EOS # 0.3 K/mm3 (0.0-0.50); EOS % 3.2 % (0.0-3.0); LARGE UNSTAINED CELL # 0.2 K/mm3 (0.0-0.4); LARGE UNSTAINED CELL % 2.5 % (0.0-4.0); MEAN CORPUSCULAR HEMOGLOBIN 26.2 pg (27.0-33.0); MEAN CORPUSCULAR HGB CONC 29.2 g/dl (32.0-36.5); MEAN CORPUSCULAR VOLUME 89.8 fl (80.0-96.0); MONO # 0.8 K/mm3 (0.0-0.8); MONO % 9.2 % (0.0-5.0); NEUTROPHILS # 6.1 K/mm3 (1.8-7.7); NEUTROPHILS % 71.6 % (36.0-66.0); PLATELET COUNT, AUTOMATED 206 k/mm3 (150-450); RED CELL DISTRIBUTION WIDTH 21.8 % (11.5-14.5); WHITE BLOOD COUNT 8.5 K/mm3 (4.0-10.0)
[2017-01-26 07:39] LABS: ALBUMIN 2.7 GM/DL (3.2-5.2); ALBUMIN/GLOBULIN RATIO 0.75 (1.00-1.93); ALKALINE PHOSPHATASE 159 U/L (45-117); ALT/SGPT 23 U/L (12-78); ANION GAP 5 MEQ/L (8-16); AST/SGOT 35 U/L (15-37); BILIRUBIN,TOTAL 0.8 MG/DL (0.2-1.0); BLOOD UREA NITROGEN 30 MG/DL (7-18); CALCIUM LEVEL 8.4 MG/DL (8.8-10.2); CARBON DIOXIDE LEVEL 31 MEQ/L (21-32); CHLORIDE LEVEL 100 MEQ/L (98-107); CREATININE FOR GFR 0.82 MG/DL (0.55-1.02); GLOMERULAR FILTRATION RATE > 60.0 (>39); GLUCOSE, FASTING 198 MG/DL (83-110); POTASSIUM SERUM 4.5 MEQ/L (3.5-5.1); SODIUM LEVEL 136 MEQ/L (136-145); TOTAL PROTEIN 6.3 GM/DL (6.4-8.2)
[2017-01-26] MEDS ORDERED: FUROSEMIDE 40 MG TAB PO ONE (08:15)
--- NOTE | 2017-01-26 08:15 | IPNPDOC ---
Subjective Date Seen The patient was seen on 01/26/17. Subjective Chief Complaint/HPI The patient is a 76-year-old female admitted with a reason for visit of Sepsis. Events since last encounter c/o erythema and burning on urination in perineum. + itching to perineum. + BERKOWITZ. CXR with pulmonary congestion. s/p PT eval, states needs one more PT session for safe DC home. Has [facility] at home for services. Constitutional: Denies: Chills, Fever, Night Sweats ENT: Denies: Head Aches, Ear Pain, Dysphagia Pulmonary: Denies: Dyspnea, Cough Cardiovascular: Reports: Edema, Denies: Chest Pain, Palpitations, Orthopnea, Paroxysmal Noc. Dyspnea, Lt Headedness Gastrointestinal: Denies: Nausea, Vomiting, Abdominal Pain, Diarrhea, Constipation Psych: Reports: Mood Normal, Denies: Depression, Memory Issues Objective Physical Examination General Exam: Positive: Alert, Cooperative, No Acute Distress Eye Exam: Positive: PERRLA, Conjunctiva & lids normal, EOMI, Negative: Sclera icteric Neck Exam: Positive: Supple, Negative: JVD, thyromegaly Chest Exam: Positive: Clear to auscultation, Normal air movement Heart Exam: Positive: Rate Normal, Regular Rhythm, Normal S1, Normal S2, Murmurs (EDMUNDO 3/6), Negative: Rubs Telemetry: Positive: No significant arrhythmia Abdomen Exam: Positive: Normal bowel sounds, Soft, Negative: Tenderness, Hepatospenomegaly Extremity Exam: Positive: Normal pulses, Other (erythema and warmth on LLE up to knee. very tender on palpation), Negative: Clubbing, Cyanosis, Edema Skin Exam: Positive: Other skin issue (erythema to BLE. dressings intact) Psych Exam: Positive: Anxiety Assessment /Plan Problems (1) Physical deconditioning Status: Acute Problem Text: 01/26/17: Participated in PT today. Anticipate one more day of PT then DC home. 01/25 refuses PT eval 01/23, 01/24 not safe per PT (2) Urinary tract infection due to Proteus Problem Text: rx as per sepsis 01/21 UCX 30K P. mirabilis (3) Sepsis Problem Text: D2 cephalexin po previous Zosyn/Vanco x 3D) favor 2 soft-tissue infection 01/26/17: plan for DC IN am with services. 01/25/17. Continues to show improvement. Anticipate DC home in am. 01/24/17: change to po antibiotic today. + proteus in urine: Sensitive to Cefazolin. Started on Keflex 500 mg po tid, will cover skin and soft tissue infections. 01/23/17: WBC 10.7. Afebrile. 01/22 Tm 102 5:50, WBC 14.7 (20K) 01/21 LA 1.6 01/22 CT AP: . Hepatosplenomegaly with relatively stable hypodense lesion in the spleen similar to 2013. 2. 4.7 cm mass lesion in the right kidney warrants further investigation to exclude renal cell carcinoma. 3. Few scattered mesenteric and retroperitoneal lymph nodes measuring up to 13 mm are of uncertain etiology. 4. Colonic diverticula without acute diverticulitis. 01/22 TTE: 1. Study is of fair technical quality. 2. Normal left ventricle (LV) size and systolic function, grade 2 diastolic dysfunction. 3. Dilated mildly hypokinetic right ventricle. 4. High central venous pressure and at least moderately severe pulmonary hypertension. 5. Mild aortic stenosis. 01/22 CT chest: Lungs demonstrate cardiomegaly and chronic changes as described above with few scattered noncalcified nodules up to 4 mm which are nonspecific. Consider follow-up examination in 6 months. 2. Right renal mass incompletely evaluated. 3. Elevation of the right hemidiaphragm secondary to hepatomegaly. 01/22 resp panel - 01/21 BCX NG x2 01/21 UCX NG x 1 (4) RSD (reflex sympathetic dystrophy) Problem Text: 01/23/17: appears to have improved comfort today. DCS not functioning 01/22 increased [place] 5-10 q4H prn and + Gudelia-Colace BID (5) Cellulitis and abscess of left leg Status: Acute Problem Text: 01/24/17: change to po antibiotic today. + proteus in urine: Sensitive to Cefazolin. Started on Keflex 500 mg po tid, will cover skin and soft tissue infections rx as per sepsis follows with [facility]-1M prior debrided L foot ulcer (6) JARAD (obstructive sleep apnea) Status: Chronic Problem Text: 01/23/17: using at home CPAP. encouraged to bring in home CPAP (7) Diabetes mellitus with hyperglycemia, with long-term current use of insulin Status: Chronic Problem Text: HD Toujeo 20 units, Alejandroeto 2.5/500 BID Continue Levemir 20 qhs here (8) Diastolic CHF Status: Chronic Response to Treatment: Stable Problem Text: Euvolemic on HD fur 40 BID (9) PVD (peripheral vascular disease) Status: Chronic Problem Text: 08/2016 arteriogram done at [facility]-per son severe R femoral stenosis- no intervention done-obtain records (10) Renal mass, right Problem Text: Noted on CT abd/pelvis. Family aware of follow with Dr. Rojas, urology in [place]. Plan/VTE VTE Prophylaxis Ordered?: Yes (Xarelto on Home Dose) VS, I&O, 24H, Fishbone Vital Signs/I&O Vital Signs Date Time Temp Pulse Resp B/P (MAP) Pulse Ox O2 Delivery O2 Flow Rate FiO2 01/26/17 07:06 20 01/26/17 06:00 97.6 61 144/62 (89) 95 Room Air 01/22/17 09:12 2.0 I&O- Last 24 Hours up to 6 AM 01/26/17 06:00 Intake Total 480 ml Output Total 0 ml Balance 480 ml Laboratory Data 24H LABS Laboratory Tests 2 01/25/17 11:46: Bedside Glucose (Misc Panel) 242H 01/25/17 16:51: Bedside Glucose (Misc Panel) 298H 01/25/17 20:20: Bedside Glucose (Misc Panel) 299H 01/26/17 05:55: White Blood Count 8.5, Red Blood Count 4.57, Hemoglobin 12.0, Hematocrit 41.0, Mean Corpuscular Volume 89.8, Mean Corpuscular Hemoglobin 26.2L, Mean Corpuscular Hemoglobin Concent 29.2L, Red Cell Distribution Width 21.8H, Platelet Count 206, Neutrophils (%) (Auto) 71.6H, Lymphocytes (%) (Auto) 12.0L, Monocytes (%) (Auto) 9.2H, Eosinophils (%) (Auto) 3.2H, Basophils (%) (Auto) 1.5H, Neutrophils # (Auto) 6.1, Lymphocytes # (Auto) 1.0L, Monocytes # (Auto) 0.8, Eosinophils # (Auto) 0.3, Basophils # (Auto) 0.1, Large Unclassified Cells % 2.5, Large Unclassified Cells # 0.2, Anion Gap 5L, Glomerular Filtration Rate > 60.0, Blood Urea Nitrogen 30H, Creatinine 0.82, Sodium Level 136, Potassium Level 4.5, Chloride Level 100, Carbon Dioxide Level 31, Calcium Level 8.4L, Aspartate Amino Transf (AST/SGOT) 35, Alanine Aminotransferase (ALT/SGPT) 23, Alkaline Phosphatase 159H, Total Bilirubin 0.8, Total Protein 6.3L, Albumin 2.7L , Magnesium Level 2.0, Albumin/Globulin Ratio 0.75L CBC/BMP Laboratory Tests 01/26/17 05:55 Red Blood Count 4.57, Mean Corpuscular Volume 89.8, Mean Corpuscular Hemoglobin 26.2 L, Mean Corpuscular Hemoglobin Concent 29.2 L, Red Cell Distribution Width 21.8 H, Neutrophils (%) (Auto) 71.6 H, Lymphocytes (%) (Auto) 12.0 L, Monocytes (%) (Auto) 9.2 H, Eosinophils (%) (Auto) 3.2 H, Basophils (%) (Auto) 1.5 H, Neutrophils # (Auto) 6.1, Lymphocytes # (Auto) 1.0 L, Monocytes # (Auto) 0.8, Eosinophils # (Auto) 0.3, Basophils # (Auto) 0.1, Calcium Level 8.4 L, Aspartate Amino Transf (AST/SGOT) 35, Alanine Aminotransferase (ALT/SGPT) 23, Alkaline Phosphatase 159 H, Total Bilirubin 0.8, Total Protein 6.3 L, Albumin 2.7 L Microbiology Microbiology 01/22/17 Blood Culture - Preliminary, Resulted No Growth after 72 hours. All specime... 01/21/17 Blood Culture - Preliminary, Resulted No Growth after 72 hours. All specime... 01/22/17 Respiratory Virus Panel (PCR) ([facility]) - Final, Complete 01/21/17 Urine Culture - Final, Complete Proteus Mirabilis Kellen MclaughlinP Jan 26, 2017 08:15
[2017-01-26] MEDS ORDERED: CEPH500C PO (08:17)
[2017-01-26] MEDS ORDERED: NYST10PW TOP (08:17)
[2017-01-26] MEDS: RIVAROXABAN 20 MG TAB (XARELTO) PO SCH (08:41)
[2017-01-26] MEDS: GABAPENTIN 300 MG CAP PO SCH ×3 (08:41→21:52)
[2017-01-26] MEDS: LACTOBACILLUS ACIDOPHILUS CAP (BACID) PO SCH (08:42)
[2017-01-26] MEDS: SENNA 8.6 MG TAB (SENOKOT) PO SCH (08:42)
[2017-01-26] MEDS: LISINOPRIL 20 MG TAB PO SCH (08:42)
[2017-01-26] MEDS: MIRALAX *UNIT DOSE* 17GM PACKET PO SCH ×2 (08:42→09:00)
[2017-01-26] MEDS: FUROSEMIDE 40 MG TAB PO SCH ×2 (08:42→14:42)
[2017-01-26] MEDS: DOCUSATE SODIUM 100 MG CAP PO SCH ×2 (08:42→21:51)
[2017-01-26] MEDS: SODIUM CHLORIDE 0.9% INJ 10 ML SYR IV SCH (08:43)
[2017-01-26] MEDS: HumaLOG INSULIN (NovoLOG) PER UNIT SC SCH ×4 (08:45→21:54)
--- NOTE | 2017-01-26 09:44 | DSES ---
DATE OF ADMISSION: 01/22/2017 DATE OF DISCHARGE: ATTENDING PHYSICIAN: Dr. Daniel Muñoz PRIMARY CARE PROVIDER: Dr. Barrera Dasilva HISTORY OF PRESENT ILLNESS: This is a 76-year-old female with a past medical history of insulin-dependent diabetes, hypertension, nonobstructive coronary artery disease, hypothyroidism, diastolic heart failure, obstructive sleep apnea on CPAP, chronic lower extremity venous stasis ulcers, polycythemia, hypertension, reflex sympathetic dystrophy, significant pulmonary hypertension, who presented to the emergency room for complaints of increasing lethargy and disorientation. The patient also complained of chills. She was hypoxic on presentation when emergency medical services (EMS) arrived. Workup in the emergency department proved sepsis likely secondary to cellulitis, as well as potential for a pneumonia. The patient was placed on broad spectrum antibiotics and admitted to the pulmonary care unit. HOSPITALIZATION COURSE: The patient was placed on broad spectrum antibiotics, which she tolerated well. Electrolytes remained stable throughout hospitalization. White blood cell count returned to normal within 48 hours of IV antibiotic therapy. The patient had multiple cultures completed, including a respiratory virus panel, blood culture, as well as urine culture. Blood cultures were negative. Respiratory virus panel was negative. She was negative for methicillin resistant Staphylococcus aureus (MRSA) via nasal swab. Urine culture did prove positive for Proteus mirabilis. The patient was subsequently transitioned to medical floor, changed over to oral antibiotics and started on physical therapy (PT). The patient had progressed slowly as far as her deconditioning is concerned and physical therapy (PT) wishes for at least one more day of treatment. At this point, the patient is medically stable. CONSULTATIONS: None. IMAGING: Includes multiple chest x-rays, most recent on 01/24/2017, which did show opacities compatible with pulmonary vascular congestion and interstitial edema. CT of the pelvis was completed, which did prove a 4.7 cm mass lesion on the right kidney, which is not new. The patient follows with Dr. Anaya in [place]. The patient had a CT of the chest, which proved cardiomegaly, chronic changes noted. She also was noted to have scattered noncalcified nodules up to 4 mm, which were nonspecific. It is recommended that the patient have a followup of these nodules within 6 months. The patient did have some elevation of the right hemidiaphragm secondary to hepatomegaly. PHYSICAL EXAMINATION: On physical examination today, vital signs are stable. She is afebrile. Electrolytes are stable. White blood cell count 11,000. Creatinine is stable at 0.82. HEENT: Neck is supple without lymphadenopathy or jugular venous distention (JVD). CARDIOVASCULAR: Heart rate and rhythm are regular. PULMONARY: Lungs are diminished without any wheezing, rhonchi or rales appreciated. ABDOMEN: Soft and nontender. Perineum does show some erythema with a well marginated rash to the vaginal fold and inguinal region. NEUROLOGIC: She is alert and oriented times three. PSYCHIATRIC: Affect is mildly restricted and anxious; however, conversation is congruent. The patient maintains eye contact. ASSESSMENT: 1. Sepsis. 2. Metabolic encephalopathy. 3. Cellulitis of the left lower extremity with chronic venous stasis ulcers to bilateral lower extremities. 4. Pulmonary nodules. 5. Mass to the right kidney. SECONDARY DIAGNOSES: Include: 1. Diabetes. 2. Nonobstructive coronary artery disease. 3. Polycythemia. 4. Obstructive sleep apnea on CPAP. 5. Reflex sympathetic dystrophy. 6. History of diastolic heart failure. 7. History of hypothyroidism. PLAN: The patient will be discharged to home after she is cleared by physical therapy (PT). MEDICATIONS: As follows: - cephalexin 500 mg by mouth every 8 hours - nystatin topically twice a day for 10 days - hydrocodone with acetaminophen 5/325 one tablet by mouth every 6 hours as needed for pain - aspirin 81 mg by mouth at night - furosemide 40 mg by mouth twice a day - gabapentin 300 mg by mouth three times a day - Jentadueto 2.09/999 mg one tablet by mouth twice a day with meals - lactobacillus one capsule by mouth daily - levothyroxine 50 mcg by mouth in the morning - Lidocaine patch topically daily as needed for pain - Lisinopril 20 mg by mouth daily - magnesium oxide 500 mg by mouth at night - multivitamin one tablet by mouth at night - Xarelto 20 mg daily - Toujeo Solo[place] 20 units subcutaneously at night - vitamin D 50,000 International Units by mouth weekly The patient will be discharged when she is safe with physical therapy (PT). Anticipated discharge is 01/27/2017. The patient will be discharged home with home health services.
[2017-01-26 10:00] VITALS: BP 140/64
[2017-01-26] MEDS: NYSTATIN 100,000 UNITS/GM TOPICAL PWD 15 GM TOP SCH ×2 (10:04→21:54)
[2017-01-26 14:00] VITALS: BP 133/62
[2017-01-26] MEDS: MORPHINE 2 MG/ML 1ML SYRINGE IV PRN (15:26)
[2017-01-26 18:00] VITALS: BP 138/71
[2017-01-26] MEDS: MULTIVITAMINS/MINERALS THERAP 1 TAB PO SCH (21:51)
[2017-01-26] MEDS: ASPIRIN 81 MG ENTERIC TAB PO SCH (21:52)
[2017-01-26] MEDS: LEVEMIR (INSULIN DETEMIR) 1 UNITS/0.01ML SC SCH (21:53)
[2017-01-26 22:00] VITALS: BP 150/70
[2017-01-27] VITALS (7 sets, daily range): BP systolic 130–188; BP diastolic 50–90
[2017-01-27] MEDS: NORCO, ANEXSIA 5/325MG TABLET (HYDROcodone/ACETAMINOPHEN) PO PRN ×5 (03:03→21:01)
[2017-01-27] MEDS: LEVOTHYROXINE 50MCG TABLET (0.05MG) PO SCH (05:24)
[2017-01-27] MEDS: CEPHALEXIN 500 MG CAP PO SCH ×3 (05:24→21:02)
[2017-01-27] MEDS: SODIUM CHLORIDE 0.9% INJ 10 ML SYR IV PRN (05:28)
[2017-01-27 06:17] LABS: ALBUMIN 2.7 GM/DL (3.2-5.2); ALBUMIN/GLOBULIN RATIO 0.75 (1.00-1.93); ALKALINE PHOSPHATASE 168 U/L (45-117); ALT/SGPT 20 U/L (12-78); ANION GAP 8 MEQ/L (8-16); AST/SGOT 28 U/L (15-37); BILIRUBIN,TOTAL 0.8 MG/DL (0.2-1.0); BLOOD UREA NITROGEN 32 MG/DL (7-18); CALCIUM LEVEL 8.3 MG/DL (8.8-10.2); CARBON DIOXIDE LEVEL 31 MEQ/L (21-32); CHLORIDE LEVEL 100 MEQ/L (98-107); CREATININE FOR GFR 0.73 MG/DL (0.55-1.02); GLOMERULAR FILTRATION RATE > 60.0 (>39); GLUCOSE, FASTING 271 MG/DL (83-110); MAGNESIUM LEVEL 1.9 MG/DL (1.8-2.4); POTASSIUM SERUM 4.7 MEQ/L (3.5-5.1); SODIUM LEVEL 139 MEQ/L (136-145); TOTAL PROTEIN 6.3 GM/DL (6.4-8.2)
[2017-01-27 06:23] LABS: ADD MANUAL DIFFER YES; MEAN CORPUSCULAR HEMOGLOBIN 26.3 pg (27.0-33.0); MEAN CORPUSCULAR HGB CONC 28.8 g/dl (32.0-36.5); MEAN CORPUSCULAR VOLUME 91.3 fl (80.0-96.0); PLATELET COUNT, AUTOMATED 203 k/mm3 (150-450); RED CELL DISTRIBUTION WIDTH 21.7 % (11.5-14.5)
[2017-01-27 07:06] LABS: BASOPHILS 1 % (0-4); EOSINOPHILS 5 % (0-5); NUCLEATED RED BLOOD CELL 2 % (0-0)
[2017-01-27 07:07] LABS: ANISOCYTOSIS 2+; HYPOCHROMASIA 3+
[2017-01-27] MEDS: MIRALAX *UNIT DOSE* 17GM PACKET PO SCH (07:58)
[2017-01-27] MEDS: DOCUSATE SODIUM 100 MG CAP PO SCH ×2 (07:59→21:00)
[2017-01-27] MEDS: SENNA 8.6 MG TAB (SENOKOT) PO SCH (07:59)
[2017-01-27] MEDS: FUROSEMIDE 40 MG TAB PO SCH ×2 (07:59→14:55)
[2017-01-27] MEDS: LACTOBACILLUS ACIDOPHILUS CAP (BACID) PO SCH (08:00)
[2017-01-27] MEDS: LISINOPRIL 20 MG TAB PO SCH (08:00)
[2017-01-27] MEDS: RIVAROXABAN 20 MG TAB (XARELTO) PO SCH (08:00)
[2017-01-27] MEDS: HumaLOG INSULIN (NovoLOG) PER UNIT SC SCH ×4 (08:00→21:28)
[2017-01-27] MEDS: SODIUM CHLORIDE 0.9% INJ 10 ML SYR IV SCH (08:01)
[2017-01-27] MEDS: GABAPENTIN 300 MG CAP PO SCH ×3 (08:02→21:02)
[2017-01-27] MEDS: NYSTATIN 100,000 UNITS/GM TOPICAL PWD 15 GM TOP SCH ×2 (08:02→21:28)
[2017-01-27] MEDS: ASPIRIN 81 MG ENTERIC TAB PO SCH (21:01)
[2017-01-27] MEDS: MULTIVITAMINS/MINERALS THERAP 1 TAB PO SCH (21:01)
[2017-01-27] MEDS: LEVEMIR (INSULIN DETEMIR) 1 UNITS/0.01ML SC SCH (21:03)
[2017-01-28] MEDS: NORCO, ANEXSIA 5/325MG TABLET (HYDROcodone/ACETAMINOPHEN) PO PRN ×5 (01:47→22:59)
[2017-01-28 02:00] VITALS: BP 141/81
[2017-01-28] MEDS: CEPHALEXIN 500 MG CAP PO SCH ×3 (05:17→21:01)
[2017-01-28] MEDS: SODIUM CHLORIDE 0.9% INJ 10 ML SYR IV PRN (05:18)
[2017-01-28 05:50] LABS: ALBUMIN 2.6 GM/DL (3.2-5.2); ALBUMIN/GLOBULIN RATIO 0.72 (1.00-1.93); ALKALINE PHOSPHATASE 134 U/L (45-117); ALT/SGPT 19 U/L (12-78); ANION GAP 7 MEQ/L (8-16); AST/SGOT 26 U/L (15-37); BILIRUBIN,TOTAL 0.8 MG/DL (0.2-1.0); BLOOD UREA NITROGEN 24 MG/DL (7-18); CALCIUM LEVEL 8.7 MG/DL (8.8-10.2); CARBON DIOXIDE LEVEL 32 MEQ/L (21-32); CHLORIDE LEVEL 99 MEQ/L (98-107); CREATININE FOR GFR 0.67 MG/DL (0.55-1.02); GLOMERULAR FILTRATION RATE > 60.0 (>39); GLUCOSE, FASTING 227 MG/DL (83-110); MAGNESIUM LEVEL 1.7 MG/DL (1.8-2.4); POTASSIUM SERUM 4.8 MEQ/L (3.5-5.1); SODIUM LEVEL 138 MEQ/L (136-145); TOTAL PROTEIN 6.2 GM/DL (6.4-8.2)
[2017-01-28 05:52] LABS: BASO # 0.2 K/mm3 (0.0-0.2); BASO % 1.8 % (0.0-1.0); EOS # 0.4 K/mm3 (0.0-0.50); LARGE UNSTAINED CELL # 0.2 K/mm3 (0.0-0.4); LARGE UNSTAINED CELL % 1.5 % (0.0-4.0); LYMPH # 1.5 K/mm3 (1.5-4.5); LYMPH % 13.3 % (24.0-44.0); MEAN CORPUSCULAR HEMOGLOBIN 25.4 pg (27.0-33.0); MEAN CORPUSCULAR HGB CONC 27.8 g/dl (32.0-36.5); MEAN CORPUSCULAR VOLUME 91.4 fl (80.0-96.0); MONO # 0.6 K/mm3 (0.0-0.8); MONO % 5.7 % (0.0-5.0); NEUTROPHILS # 7.4 K/mm3 (1.8-7.7); NEUTROPHILS % 73.6 % (36.0-66.0); PLATELET COUNT, AUTOMATED 206 k/mm3 (150-450); RED CELL DISTRIBUTION WIDTH 21.9 % (11.5-14.5); WHITE BLOOD COUNT 10.1 K/mm3 (4.0-10.0)
[2017-01-28 06:00] VITALS: BP 155/64
[2017-01-28] MEDS: LEVOTHYROXINE 50MCG TABLET (0.05MG) PO SCH (06:12)
[2017-01-28] MEDS: LISINOPRIL 20 MG TAB PO SCH (07:40)
[2017-01-28] MEDS: RIVAROXABAN 20 MG TAB (XARELTO) PO SCH (07:40)
[2017-01-28] MEDS: DOCUSATE SODIUM 100 MG CAP PO SCH ×2 (07:40→20:57)
[2017-01-28] MEDS: LACTOBACILLUS ACIDOPHILUS CAP (BACID) PO SCH (07:40)
[2017-01-28] MEDS: FUROSEMIDE 40 MG TAB PO SCH ×2 (07:40→14:26)
[2017-01-28] MEDS: MIRALAX *UNIT DOSE* 17GM PACKET PO SCH (07:41)
[2017-01-28] MEDS: SENNA 8.6 MG TAB (SENOKOT) PO SCH (07:41)
[2017-01-28] MEDS: GABAPENTIN 300 MG CAP PO SCH ×3 (07:41→20:57)
[2017-01-28] MEDS: HumaLOG INSULIN (NovoLOG) PER UNIT SC SCH ×4 (07:41→21:00)
[2017-01-28] MEDS: SODIUM CHLORIDE 0.9% INJ 10 ML SYR IV SCH (07:42)
[2017-01-28] MEDS: NYSTATIN 100,000 UNITS/GM TOPICAL PWD 15 GM TOP SCH ×2 (07:42→21:01)
[2017-01-28 10:00] VITALS: BP 152/84
[2017-01-28 14:00] VITALS: BP 144/64
[2017-01-28] MEDS: DULoxetine 20 MG CAP (CYMBALTA) PO SCH (17:02)
[2017-01-28 18:00] VITALS: BP 138/72
[2017-01-28] MEDS: ASPIRIN 81 MG ENTERIC TAB PO SCH (20:57)
[2017-01-28] MEDS: LEVEMIR (INSULIN DETEMIR) 1 UNITS/0.01ML SC SCH (20:58)
[2017-01-28] MEDS: MULTIVITAMINS/MINERALS THERAP 1 TAB PO SCH (20:58)
[2017-01-28 22:00] VITALS: BP 148/62
[2017-01-29 02:00] VITALS: BP 127/78
[2017-01-29] MEDS: ACETAMINOPHEN TAB 650MG DOSE (2X325MG) PO PRN (02:15)
[2017-01-29] MEDS: NORCO, ANEXSIA 5/325MG TABLET (HYDROcodone/ACETAMINOPHEN) PO PRN ×2 (05:14→12:17)
[2017-01-29] MEDS: CEPHALEXIN 500 MG CAP PO SCH ×2 (05:14→13:36)
[2017-01-29] MEDS: SODIUM CHLORIDE 0.9% INJ 10 ML SYR IV PRN (05:18)
[2017-01-29] MEDS: LEVOTHYROXINE 50MCG TABLET (0.05MG) PO SCH (05:39)
[2017-01-29 06:00] VITALS: BP 140/50
[2017-01-29 08:18] VITALS: BP 164/74
[2017-01-29] MEDS: MIRALAX *UNIT DOSE* 17GM PACKET PO SCH (08:20)
[2017-01-29] MEDS: DOCUSATE SODIUM 100 MG CAP PO SCH (08:21)
[2017-01-29] MEDS: FUROSEMIDE 40 MG TAB PO SCH ×2 (08:21→13:36)
[2017-01-29] MEDS: SENNA 8.6 MG TAB (SENOKOT) PO SCH (08:21)
[2017-01-29 08:22] VITALS: BP 164/74
[2017-01-29] MEDS: LISINOPRIL 20 MG TAB PO SCH (08:22)
[2017-01-29] MEDS: LACTOBACILLUS ACIDOPHILUS CAP (BACID) PO SCH (08:22)
[2017-01-29] MEDS: GABAPENTIN 300 MG CAP PO SCH ×2 (08:22→15:25)
[2017-01-29] MEDS: DULoxetine 20 MG CAP (CYMBALTA) PO SCH (08:22)
[2017-01-29] MEDS: SODIUM CHLORIDE 0.9% INJ 10 ML SYR IV SCH (08:23)
[2017-01-29] MEDS: HumaLOG INSULIN (NovoLOG) PER UNIT SC SCH ×2 (08:24→12:16)
[2017-01-29] MEDS: NYSTATIN 100,000 UNITS/GM TOPICAL PWD 15 GM TOP SCH (08:25)
[2017-01-29 12:30] LABS: MEAN CORPUSCULAR HGB CONC 28.8 g/dl (32.0-36.5); WHITE BLOOD COUNT 8.8 K/mm3 (4.0-10.0)
[2017-01-29 13:02] LABS: ANION GAP 2 MEQ/L (8-16); BLOOD UREA NITROGEN 19 MG/DL (7-18); CALCIUM LEVEL 8.3 MG/DL (8.8-10.2); CARBON DIOXIDE LEVEL 36 MEQ/L (21-32); CHLORIDE LEVEL 99 MEQ/L (98-107); CREATININE FOR GFR 0.59 MG/DL (0.55-1.02); GLOMERULAR FILTRATION RATE > 60.0 (>39); GLUCOSE, FASTING 194 MG/DL (83-110); MAGNESIUM LEVEL 1.5 MG/DL (1.8-2.4); POTASSIUM SERUM 4.1 MEQ/L (3.5-5.1); SODIUM LEVEL 137 MEQ/L (136-145)
[2017-01-29] MEDS ORDERED: DULO1CAP PO (13:46)
[2017-01-29 14:00] VITALS: BP 139/61
--- NOTE | 2017-01-30 08:15 | DSES ---
ADDENDUM: Date of discharge is 01/29/2017. Her discharge was withheld on 01/26/2017 due to somnolence and concern that the patient would be unable to take care of herself at home as she lives primarily alone and her son works during the day. Adjustments have been made to her narcotic pain regimen with improvement in her mental status. She has been seen by physical therapy over the weekend who feel as though she is safe to return home. Her discharge summary otherwise remains unchanged.
--- NOTE | 2017-01-31 03:56 | DSES ---
DISCHARGE SUMMARY ADDENDUM: DATE OF ADMISSION: 01/22/2017 DATE OF DISCHARGE: 01/29/2017 Please see discharge summary reports #[id number] and #[id number]. Additional medication at discharge includes duloxetine 20 mg daily. She will followup with MOUNA Romeo, for subsequent dose titration. No change in discharge diagnoses.
== END 2017-01-29 16:54 | disposition home health service (06) | DRG 871 ==
LOC: EDBD 19:19 → M ED 19:19 → M ED INP 01-22 00:42 → M ICU 01-22 08:57 → M MSPAV 01-23 15:25
PROVIDERS: ADMIT Internal Medicine; ATTEND Family Medicine
DX: A41.9 Sepsis, unspecified organism (principal); G93.41 Metabolic encephalopathy; L03.116 Cellulitis of left lower limb; I50.32 Chronic diastolic (congestive) heart failure; N39.0 Urinary tract infection, site not specified; G90.529 Complex regional pain syndrome I of unspecified lower limb; E11.65 Type 2 diabetes mellitus with hyperglycemia; I11.0 Hypertensive heart disease with heart failure; I25.10 Atherosclerotic heart disease of native coronary artery without angina pectoris; E03.9 Hypothyroidism, unspecified; G47.33 Obstructive sleep apnea (adult) (pediatric); I83.009 Varicose veins of unspecified lower extremity with ulcer of unspecified site; D75.1 Secondary polycythemia; B96.4 Proteus (mirabilis) (morganii) as the cause of diseases classified elsewhere; R91.8 Other nonspecific abnormal finding of lung field; N28.89 Other specified disorders of kidney and ureter; Z79.82 Long term (current) use of aspirin; Z79.4 Long term (current) use of insulin; Z79.01 Long term (current) use of anticoagulants; Z99.89 Dependence on other enabling machines and devices; Z90.710 Acquired absence of both cervix and uterus; Z96.9 Presence of functional implant, unspecified; Z87.891 Personal history of nicotine dependence; Z91.030 Bee allergy status; I73.9 Peripheral vascular disease, unspecified

== ENCOUNTER → 2017-06-18 | Outpatient (CLI) | payer MEDICARE | LOC: M ADAMS 19:10 | DX: J10.1 Influenza due to other identified influenza virus with other respiratory manifestations (principal); R05 Cough; I51.7 Cardiomegaly | CPT/HCPCS: 71046 ==

== ENCOUNTER → 2017-08-08 | Outpatient (CLI) | payer MEDICARE ==
[2017-08-08 11:37] LABS: HEMATOCRIT 41.8 % (36.0-47.0); HEMOGLOBIN 11.5 g/dl (12.0-16.0); MEAN CORPUSCULAR HEMOGLOBIN 24.8 pg (27.0-33.0); MEAN CORPUSCULAR HGB CONC 27.5 g/dl (32.0-36.5); MEAN CORPUSCULAR VOLUME 90.3 fl (80.0-96.0); PLATELET COUNT, AUTOMATED 186 10^3/uL (150-450); RED BLOOD COUNT 4.63 10^6/uL (4.00-5.40); RED CELL DISTRIBUTION WIDTH 25.6 % (11.5-14.5); WHITE BLOOD COUNT 9.2 10^3/uL (4.0-10.0)
[2017-08-08 11:39] LABS: BASO # 0.3 10^3/uL (0.0-0.2); BASO % 2.7 % (0.0-1.0); EOS # 0.3 10^3/uL (0.0-0.50); EOS % 2.8 % (0.0-3.0); IMMATURE GRANULOCYTE % 2.5 % (0-3.0); LYMPH # 1.5 10^3/uL (1.5-4.5); MONO # 0.8 10^3/uL (0.0-0.8); MONO % 8.7 % (0.0-5.0); NEUTROPHILS # 6.2 10^3/uL (1.8-7.7); NEUTROPHILS % 67.3 % (36.0-66.0); POSITIVE MORPH POS FLAG
[2017-08-08 11:40] LABS: ADD MANUAL DIFFER YES; DIFF SLIDE NUMBER 174
[2017-08-08 12:08] LABS: TOTAL 25(OH) VITAMIN D 73.6 NG/ML (30.0-100.0)
[2017-08-08 12:09] LABS: CREATININE, URINE 41.8 MG/DL; MALB URINE SIEMENS 94.9 MG/L
[2017-08-08 12:15] LABS: ALBUMIN 3.1 GM/DL (3.2-5.2); ALKALINE PHOSPHATASE 129 U/L (45-117); ALT/SGPT 14 U/L (12-78); ANION GAP 7 MEQ/L (8-16); AST/SGOT 33 U/L (7-37); BILIRUBIN,TOTAL 1.3 MG/DL (0.2-1.0); BLOOD UREA NITROGEN 22 MG/DL (7-18); CALCIUM LEVEL 8.9 MG/DL (8.8-10.2); CARBON DIOXIDE LEVEL 31 MEQ/L (21-32); CHLORIDE LEVEL 94 MEQ/L (98-107); CHOLESTEROL LEVEL 122 MG/DL (<200); CHOLESTEROL RISK RATIO 5.083 (<5); CREATININE FOR GFR 0.62 MG/DL (0.55-1.30); FREE T4 1.53 NG/DL (0.76-1.46); GLOMERULAR FILTRATION RATE > 60.0 (>39); GLUCOSE, FASTING 131 MG/DL (70-100); HDL CHOLESTEROL 24 MG/DL (>40); NON-HDL-C 98 MG/DL; POTASSIUM SERUM 5.1 MEQ/L (3.5-5.1); SODIUM LEVEL 132 MEQ/L (136-145); TOTAL PROTEIN 7.5 GM/DL (6.4-8.2); TRIGLYCERIDES LEVEL 145 MG/DL (<150)
[2017-08-08 12:41] LABS: ANISOCYTOSIS 3+; BASOPHILS 2 % (0-4); EOSINOPHILS 2 % (0-5); LYMPHOCYTES 22 % (16-52); MONOCYTES 3 % (0-8); NEUTROPHILS 71 % (35-75); PLATELET ESTIMATE NORMAL (NORMAL); POLYCHROMASIA 2+
[2017-08-08 12:50] LABS: ESTIMATED AVERAGE GLUCOSE 146 MG/DL (60-110); HEMOGLOBIN A1c 6.7 %
== END ==
LOC: M WUC 10:33
DX: E11.40 Type 2 diabetes mellitus with diabetic neuropathy, unspecified (principal); I10 Essential (primary) hypertension; I87.2 Venous insufficiency (chronic) (peripheral)
CPT/HCPCS: 83735

== ENCOUNTER 2018-01-25 14:59 | Inpatient (IN) | payer MEDICARE ==
[2018-01-25] MEDS ORDERED: SODIUM CHLORIDE 0.9% INJ 10 ML SYR IV (17:00)
[2018-01-25 17:01] LABS: BASO # 0.1 10^3/uL (0.0-0.2); BASO % 0.8 % (0.0-1.0); EOS # 0.1 10^3/uL (0.0-0.50); EOS % 0.4 % (0.0-3.0); HEMATOCRIT 35.9 % (36.0-47.0); HEMOGLOBIN 9.5 g/dl (12.0-15.5); IMMATURE GRANULOCYTE % 3.8 % (0-3.0); LYMPH # 0.6 10^3/uL (1.5-4.5); LYMPH % 3.8 % (24.0-44.0); MEAN CORPUSCULAR HEMOGLOBIN 22.7 pg (27.0-33.0); MEAN CORPUSCULAR HGB CONC 26.5 g/dl (32.0-36.5); MEAN CORPUSCULAR VOLUME 85.7 fl (80.0-96.0); MONO # 0.9 10^3/uL (0.0-0.8); MONO % 5.8 % (0.0-5.0); NEUTROPHILS # 13.4 10^3/uL (1.8-7.7); NEUTROPHILS % 85.4 % (36.0-66.0); PLATELET COUNT, AUTOMATED 177 10^3/uL (150-450); RED BLOOD COUNT 4.19 10^6/uL (4.00-5.40); RED CELL DISTRIBUTION WIDTH 25.2 % (11.5-14.5); WHITE BLOOD COUNT 15.7 10^3/uL (4.0-10.0)
[2018-01-25 17:02] LABS: SUSPECT SAMPLE POS FLAG
[2018-01-25 17:22] LABS: LACTIC ACID SEPSIS PROTOCOL 1.9 MMOL/L (0.4-2.0)
[2018-01-25 17:31] LABS: ALBUMIN 2.5 GM/DL (3.2-5.2); ALBUMIN/GLOBULIN RATIO 0.57 (1.00-1.93); ALKALINE PHOSPHATASE 129 U/L (45-117); ALT/SGPT 21 U/L (12-78); ANION GAP 7 MEQ/L (8-16); AST/SGOT 41 U/L (7-37); BILIRUBIN,DIRECT 0.9 MG/DL (0.0-0.2); BILIRUBIN,TOTAL 1.6 MG/DL (0.2-1.0); BLOOD UREA NITROGEN 22 MG/DL (7-18); CALCIUM LEVEL 8.2 MG/DL (8.8-10.2); CARBON DIOXIDE LEVEL 28 MEQ/L (21-32); CHLORIDE LEVEL 97 MEQ/L (98-107); CPK CREATINE PHOSPHOKINASE 131 U/L (26-192); CREATININE FOR GFR 0.67 MG/DL (0.55-1.30); GLOMERULAR FILTRATION RATE > 60.0 (>39); GLUCOSE, FASTING 183 MG/DL (70-100); MB/CK RELATIVE INDEX 1.68 (< OR =4); POTASSIUM SERUM 4.8 MEQ/L (3.5-5.1); SODIUM LEVEL 132 MEQ/L (136-145); TOTAL PROTEIN 6.9 GM/DL (6.4-8.2); TROPONIN I 0.02 NG/ML (< 0.10)
[2018-01-25 17:32] LABS: ERYTHROCYTE SEDIMENTATION RATE 69 mm/hr (0-30)
[2018-01-25] MEDS: NS 1,000 ML IV ×2 (19:00→20:55)
[2018-01-25] MEDS: PIPERACILLIN/TAZOBACTAM SOD 3.375 GM in D5W MINI-BAG PLUS 50 ML IV (19:16)
[2018-01-25] MEDS: MORPHINE 2 MG/ML 1ML SYRINGE (J2270) IV (19:20)
[2018-01-25] MEDS: HYDROMORPHONE HCL 0.5 MG/ 0.5 ML SYRINGE (J1170 PER 1) IV (20:07)
[2018-01-25] MEDS: ASPIRIN 81 MG ENTERIC TAB PO (21:00)
[2018-01-25] MEDS: MULTIVITAMINS/MINERALS THERAP 1 TAB PO (21:00)
[2018-01-25] MEDS: FUROSEMIDE 40 MG TAB PO (21:00)
[2018-01-25] MEDS: GABAPENTIN 300 MG CAP PO (21:00)
[2018-01-25] MEDS: RIVAROXABAN 20 MG TAB (XARELTO) PO (21:00)
[2018-01-25] MEDS: DULoxetine 30 MG CAP (CYMBALTA) PO (21:00)
[2018-01-25] MEDS ORDERED: GLUCAGON FOR INJ 1 MG VIAL (J1610) SC (21:15)
[2018-01-25] MEDS ORDERED: GLUCOSE 4 GM CHEW TABLET PO (21:15)
[2018-01-25] MEDS ORDERED: DEXTROSE 50% 50 ML SYRINGE IV (21:15)
[2018-01-25] MEDS: VANCOMYCIN HCL 1,000 MG, VIAL MATE ADAPTER 1 EACH in D5W 250 ML IV (21:47)
[2018-01-25 22:06] LABS: ERYTHROCYTE SEDIMENTATION RATE 80 mm/hr (0-30)
[2018-01-25] MEDS: ACETAMINOPHEN 650 MG SUPP PR (22:12)
[2018-01-25 22:23] LABS: FERRITIN 33 NG/ML (8-252)
[2018-01-25 22:23] LABS: IRON (FE) 16 UG/DL (50-170)
[2018-01-25] MEDS: metroNIDAZOLE 500 MG in APPROPRIATE DILUENT 1 EA IV (23:37)
[2018-01-26] MEDS ORDERED: DEXTROSE 50% 50 ML SYRINGE IV (00:30)
[2018-01-26] MEDS ORDERED: GLUCOSE 4 GM CHEW TABLET PO (00:30)
[2018-01-26] MEDS ORDERED: GLUCAGON FOR INJ 1 MG VIAL (J1610) SC (00:30)
[2018-01-26] MEDS: CEFEPIME HCL 1 GM in D5W MINI-BAG PLUS 50 ML IV ×2 (01:12→12:54)
[2018-01-26] MEDS: PERCOCET 5MG/325MG TAB PO ×3 (01:58→21:28)
[2018-01-26] MEDS: DULoxetine 30 MG CAP (CYMBALTA) PO ×2 (04:56→14:47)
[2018-01-26] MEDS: metroNIDAZOLE 500 MG in APPROPRIATE DILUENT 1 EA IV ×3 (04:56→22:56)
[2018-01-26 05:20] LABS: HEMATOCRIT 33.3 % (36.0-47.0); HEMOGLOBIN 8.8 g/dl (12.0-15.5); MEAN CORPUSCULAR HEMOGLOBIN 22.6 pg (27.0-33.0); MEAN CORPUSCULAR HGB CONC 26.4 g/dl (32.0-36.5); MEAN CORPUSCULAR VOLUME 85.6 fl (80.0-96.0); PLATELET COUNT, AUTOMATED 171 10^3/uL (150-450); RED BLOOD COUNT 3.89 10^6/uL (4.00-5.40); RED CELL DISTRIBUTION WIDTH 25.7 % (11.5-14.5); WHITE BLOOD COUNT 14.3 10^3/uL (4.0-10.0)
[2018-01-26] MEDS ORDERED: VANCOMYCIN HCL 1,000 MG, VIAL MATE ADAPTER 1 EACH in D5W 250 ML IV (06:00)
[2018-01-26] MEDS: MORPHINE 4 MG/ML 1ML VIAL/SYRINGE (J2270) IV (06:48)
[2018-01-26] MEDS ORDERED: HumaLOG INSULIN (NovoLOG) PER UNIT SC (07:30)
[2018-01-26 10:03] LABS: BEDSIDE GLUCOSE 189 MG/DL (83-110)
[2018-01-26] MEDS: LEVOTHYROXINE 50MCG TABLET (0.05MG) PO (10:11)
[2018-01-26] MEDS: LEVEMIR (INSULIN DETEMIR) 1 UNITS/0.01ML SC (10:11)
[2018-01-26] MEDS: FUROSEMIDE 40 MG TAB PO ×2 (10:11→14:47)
[2018-01-26] MEDS: GABAPENTIN 300 MG CAP PO ×3 (10:11→21:26)
[2018-01-26] MEDS: LISINOPRIL 20 MG TAB PO (10:12)
[2018-01-26] MEDS: HumaLOG INSULIN (NovoLOG) PER UNIT SC ×4 (10:13→21:00)
[2018-01-26] MEDS: VITAMIN D 1,000 INTERNATIONAL UNITS TABLET PO (10:23)
[2018-01-26] MEDS: SODIUM CHLORIDE 0.9% INJ 10 ML SYR IV (10:23)
[2018-01-26] MEDS: VANCOMYCIN HCL 1,000 MG, VIAL MATE ADAPTER 1 EACH in D5W 250 ML IV ×2 (10:27→21:32)
[2018-01-26 11:24] LABS: BEDSIDE GLUCOSE 213 MG/DL (83-110)
[2018-01-26 11:25] LABS: ANION GAP 8 MEQ/L (8-16); BLOOD UREA NITROGEN 25 MG/DL (7-18); CARBON DIOXIDE LEVEL 26 MEQ/L (21-32); CHLORIDE LEVEL 97 MEQ/L (98-107); CREATININE FOR GFR 0.88 MG/DL (0.55-1.30); GLOMERULAR FILTRATION RATE > 60.0 (>39); GLUCOSE, FASTING 238 MG/DL (70-100); POTASSIUM SERUM 4.1 MEQ/L (3.5-5.1); SODIUM LEVEL 131 MEQ/L (136-145)
[2018-01-26] MEDS: INFLUENZA VIRUS VACCINE HIGH DOSE 0.5 ML SYRINGE (90662) IM (14:48)
[2018-01-26] MEDS: PNEUMOCOCCAL VACCINE 0.5ML SYRINGE(90732) PNEUMOVAX 23 IM (14:49)
[2018-01-26 16:50] LABS: BEDSIDE GLUCOSE 207 MG/DL (83-110)
[2018-01-26 19:00] LABS: ANION GAP 8 MEQ/L (8-16); BLOOD UREA NITROGEN 28 MG/DL (7-18); CALCIUM LEVEL 7.8 MG/DL (8.8-10.2); CARBON DIOXIDE LEVEL 27 MEQ/L (21-32); CHLORIDE LEVEL 97 MEQ/L (98-107); CREATININE FOR GFR 0.82 MG/DL (0.55-1.30); GLOMERULAR FILTRATION RATE > 60.0 (>39); GLUCOSE, FASTING 170 MG/DL (70-100); POTASSIUM SERUM 4.3 MEQ/L (3.5-5.1); SODIUM LEVEL 132 MEQ/L (136-145)
[2018-01-26 20:53] LABS: ANION GAP 12 MEQ/L (8-16); BLOOD UREA NITROGEN 27 MG/DL (7-18); CALCIUM LEVEL 8.1 MG/DL (8.8-10.2); CARBON DIOXIDE LEVEL 23 MEQ/L (21-32); CHLORIDE LEVEL 97 MEQ/L (98-107); CREATININE FOR GFR 0.92 MG/DL (0.55-1.30); GLOMERULAR FILTRATION RATE > 60.0 (>39); GLUCOSE, FASTING 195 MG/DL (70-100); POTASSIUM SERUM 4.3 MEQ/L (3.5-5.1); SODIUM LEVEL 132 MEQ/L (136-145)
[2018-01-26 20:55] LABS: VANCOMYCIN LEVEL TROUGH 16.3 UG/ML (10.0-20.0)
[2018-01-26] MEDS: RIVAROXABAN 20 MG TAB (XARELTO) PO (21:26)
[2018-01-26] MEDS: MULTIVITAMINS/MINERALS THERAP 1 TAB PO (21:26)
[2018-01-26] MEDS: ASPIRIN 81 MG ENTERIC TAB PO (21:26)
[2018-01-26 21:52] LABS: BEDSIDE GLUCOSE 214 MG/DL (83-110)
[2018-01-27] MEDS: CEFEPIME HCL 1 GM in D5W MINI-BAG PLUS 50 ML IV ×2 (00:21→13:00)
[2018-01-27 04:34] LABS: ANION GAP 8 MEQ/L (8-16); BLOOD UREA NITROGEN 30 MG/DL (7-18); CALCIUM LEVEL 7.5 MG/DL (8.8-10.2); CARBON DIOXIDE LEVEL 28 MEQ/L (21-32); CHLORIDE LEVEL 97 MEQ/L (98-107); GLOMERULAR FILTRATION RATE > 60.0 (>39); GLUCOSE, FASTING 154 MG/DL (70-100); SODIUM LEVEL 133 MEQ/L (136-145)
[2018-01-27] MEDS: metroNIDAZOLE 500 MG in APPROPRIATE DILUENT 1 EA IV ×3 (06:00→23:02)
[2018-01-27] MEDS: DULoxetine 30 MG CAP (CYMBALTA) PO ×2 (06:00→16:07)
[2018-01-27] MEDS: PERCOCET 5MG/325MG TAB PO ×4 (06:06→21:41)
[2018-01-27 06:25] LABS: HEMATOCRIT 30.9 % (36.0-47.0); HEMOGLOBIN 8.2 g/dl (12.0-15.5); MEAN CORPUSCULAR HEMOGLOBIN 22.8 pg (27.0-33.0); MEAN CORPUSCULAR HGB CONC 26.5 g/dl (32.0-36.5); MEAN CORPUSCULAR VOLUME 85.8 fl (80.0-96.0); PLATELET COUNT, AUTOMATED 143 10^3/uL (150-450); RED CELL DISTRIBUTION WIDTH 25.4 % (11.5-14.5); WHITE BLOOD COUNT 10.1 10^3/uL (4.0-10.0)
[2018-01-27] MEDS: HumaLOG INSULIN (NovoLOG) PER UNIT SC ×4 (08:27→21:00)
[2018-01-27] MEDS: VITAMIN D 1,000 INTERNATIONAL UNITS TABLET PO (08:28)
[2018-01-27] MEDS: LEVEMIR (INSULIN DETEMIR) 1 UNITS/0.01ML SC (08:28)
[2018-01-27] MEDS: LEVOTHYROXINE 50MCG TABLET (0.05MG) PO (08:29)
[2018-01-27] MEDS: FUROSEMIDE 40 MG TAB PO (08:29)
[2018-01-27] MEDS: GABAPENTIN 300 MG CAP PO ×3 (08:29→21:41)
[2018-01-27] MEDS: LISINOPRIL 20 MG TAB PO (08:29)
[2018-01-27] MEDS: SODIUM CHLORIDE 0.9% INJ 10 ML SYR IV (08:30)
[2018-01-27] MEDS: VANCOMYCIN HCL 1,000 MG, VIAL MATE ADAPTER 1 EACH in D5W 250 ML IV ×2 (08:35→21:41)
[2018-01-27 11:20] LABS: ANION GAP 9 MEQ/L (8-16); BLOOD UREA NITROGEN 29 MG/DL (7-18); CALCIUM LEVEL 7.6 MG/DL (8.8-10.2); CARBON DIOXIDE LEVEL 27 MEQ/L (21-32); CHLORIDE LEVEL 96 MEQ/L (98-107); CREATININE FOR GFR 0.74 MG/DL (0.55-1.30); GLOMERULAR FILTRATION RATE > 60.0 (>39); GLUCOSE, FASTING 167 MG/DL (70-100); POTASSIUM SERUM 3.9 MEQ/L (3.5-5.1); SODIUM LEVEL 132 MEQ/L (136-145)
[2018-01-27 17:02] LABS: BEDSIDE GLUCOSE 170 MG/DL (83-110)
[2018-01-27 17:02] LABS: BEDSIDE GLUCOSE 168 MG/DL (83-110)
[2018-01-27 21:38] LABS: BEDSIDE GLUCOSE 169 MG/DL (83-110)
[2018-01-27] MEDS: ASPIRIN 81 MG ENTERIC TAB PO (21:40)
[2018-01-27] MEDS: MULTIVITAMINS/MINERALS THERAP 1 TAB PO (21:41)
[2018-01-27] MEDS: RIVAROXABAN 20 MG TAB (XARELTO) PO (21:41)
[2018-01-28] MEDS: CEFEPIME HCL 1 GM in D5W MINI-BAG PLUS 50 ML IV ×2 (00:46→12:31)
[2018-01-28] MEDS: DULoxetine 30 MG CAP (CYMBALTA) PO ×2 (05:12→16:02)
[2018-01-28] MEDS: metroNIDAZOLE 500 MG in APPROPRIATE DILUENT 1 EA IV ×3 (05:13→22:46)
[2018-01-28] MEDS: PERCOCET 5MG/325MG TAB PO ×4 (05:13→16:02)
[2018-01-28 05:29] LABS: HEMATOCRIT 31.7 % (36.0-47.0); HEMOGLOBIN 8.5 g/dl (12.0-15.5); MEAN CORPUSCULAR HEMOGLOBIN 22.5 pg (27.0-33.0); MEAN CORPUSCULAR HGB CONC 26.8 g/dl (32.0-36.5); MEAN CORPUSCULAR VOLUME 83.9 fl (80.0-96.0); PLATELET COUNT, AUTOMATED 132 10^3/uL (150-450); RED BLOOD COUNT 3.78 10^6/uL (4.00-5.40); RED CELL DISTRIBUTION WIDTH 25.9 % (11.5-14.5); WHITE BLOOD COUNT 10.6 10^3/uL (4.0-10.0)
[2018-01-28 06:18] LABS: BEDSIDE GLUCOSE 134 MG/DL (83-110)
[2018-01-28] MEDS: FUROSEMIDE 40 MG TAB PO (08:08)
[2018-01-28] MEDS: LISINOPRIL 20 MG TAB PO (08:08)
[2018-01-28] MEDS: GABAPENTIN 300 MG CAP PO ×3 (08:09→21:35)
[2018-01-28] MEDS: LEVOTHYROXINE 50MCG TABLET (0.05MG) PO (08:09)
[2018-01-28] MEDS: HumaLOG INSULIN (NovoLOG) PER UNIT SC ×4 (08:09→21:00)
[2018-01-28] MEDS: VITAMIN D 1,000 INTERNATIONAL UNITS TABLET PO (08:09)
[2018-01-28] MEDS: SODIUM CHLORIDE 0.9% INJ 10 ML SYR IV (08:10)
[2018-01-28] MEDS: LEVEMIR (INSULIN DETEMIR) 1 UNITS/0.01ML SC (08:10)
[2018-01-28] MEDS: VANCOMYCIN HCL 1,000 MG, VIAL MATE ADAPTER 1 EACH in D5W 250 ML IV ×2 (08:10→21:35)
[2018-01-28 11:54] LABS: BEDSIDE GLUCOSE 237 MG/DL (83-110)
[2018-01-28 12:50] LABS: BEDSIDE GLUCOSE 225 MG/DL (83-110)
[2018-01-28 17:46] LABS: BEDSIDE GLUCOSE 209 MG/DL (83-110)
[2018-01-28] MEDS: RIVAROXABAN 20 MG TAB (XARELTO) PO (21:35)
[2018-01-28] MEDS: MULTIVITAMINS/MINERALS THERAP 1 TAB PO (21:35)
[2018-01-28] MEDS: ASPIRIN 81 MG ENTERIC TAB PO (21:35)
[2018-01-28 21:38] LABS: BEDSIDE GLUCOSE 185 MG/DL (83-110)
[2018-01-29] MEDS: CEFEPIME HCL 1 GM in D5W MINI-BAG PLUS 50 ML IV ×2 (00:23→12:44)
[2018-01-29] MEDS: DULoxetine 30 MG CAP (CYMBALTA) PO (05:29)
[2018-01-29] MEDS: metroNIDAZOLE 500 MG in APPROPRIATE DILUENT 1 EA IV ×2 (05:30→13:26)
[2018-01-29] MEDS: PERCOCET 5MG/325MG TAB PO ×2 (05:45→10:58)
[2018-01-29 07:08] LABS: BEDSIDE GLUCOSE 172 MG/DL (83-110)
[2018-01-29] MEDS: LEVEMIR (INSULIN DETEMIR) 1 UNITS/0.01ML SC (08:35)
[2018-01-29] MEDS: HumaLOG INSULIN (NovoLOG) PER UNIT SC ×2 (08:35→12:44)
[2018-01-29 08:58] LABS: HEMATOCRIT 34.9 % (36.0-47.0); HEMOGLOBIN 9.2 g/dl (12.0-15.5); MEAN CORPUSCULAR HEMOGLOBIN 22.7 pg (27.0-33.0); MEAN CORPUSCULAR HGB CONC 26.4 g/dl (32.0-36.5); MEAN CORPUSCULAR VOLUME 86.2 fl (80.0-96.0); PLATELET COUNT, AUTOMATED 148 10^3/uL (150-450); RED BLOOD COUNT 4.05 10^6/uL (4.00-5.40); RED CELL DISTRIBUTION WIDTH 25.6 % (11.5-14.5); WHITE BLOOD COUNT 13.3 10^3/uL (4.0-10.0)
[2018-01-29] MEDS: LEVOTHYROXINE 50MCG TABLET (0.05MG) PO (09:53)
[2018-01-29] MEDS: GABAPENTIN 300 MG CAP PO (09:54)
[2018-01-29] MEDS: VITAMIN D 1,000 INTERNATIONAL UNITS TABLET PO (09:54)
[2018-01-29] MEDS: FUROSEMIDE 40 MG TAB PO (09:54)
[2018-01-29] MEDS: LISINOPRIL 20 MG TAB PO (09:54)
[2018-01-29] MEDS: SODIUM CHLORIDE 0.9% INJ 10 ML SYR IV (09:55)
[2018-01-29 10:10] LABS: VANCOMYCIN LEVEL TROUGH 22.1 UG/ML (10.0-20.0)
[2018-01-29 13:47] LABS: BLOOD UREA NITROGEN 21 MG/DL (7-18); CARBON DIOXIDE LEVEL 27 MEQ/L (21-32); CHLORIDE LEVEL 96 MEQ/L (98-107); CREATININE FOR GFR 0.68 MG/DL (0.55-1.30); GLOMERULAR FILTRATION RATE > 60.0 (>39); GLUCOSE, FASTING 187 MG/DL (70-100); POTASSIUM SERUM 4.2 MEQ/L (3.5-5.1); SODIUM LEVEL 131 MEQ/L (136-145)
[2018-01-29 13:48] LABS: ANION GAP 8 MEQ/L (8-16); CALCIUM LEVEL 7.9 MG/DL (8.8-10.2)
[2018-01-29] MEDS ORDERED: VANCOMYCIN HCL 1,000 MG, VIAL MATE ADAPTER 1 EACH in D5W 250 ML IV (15:00)
[2018-01-31 11:58] LABS: BEDSIDE GLUCOSE 141 MG/DL (83-110)
== END 2018-01-29 14:00 | disposition other institution (70) | DRG 871 ==
LOC: M ED 14:59 → M ED INP 20:55 → M MS5PR 23:20
PROVIDERS: Internal Medicine
DX: A41.9 Sepsis, unspecified organism (principal); G93.41 Metabolic encephalopathy; I50.30 Unspecified diastolic (congestive) heart failure; E11.52 Type 2 diabetes mellitus with diabetic peripheral angiopathy with gangrene; G90.50 Complex regional pain syndrome I, unspecified; L97.919 Non-pressure chronic ulcer of unspecified part of right lower leg with unspecified severity; L97.929 Non-pressure chronic ulcer of unspecified part of left lower leg with unspecified severity; R65.20 Severe sepsis without septic shock; L97.519 Non-pressure chronic ulcer of other part of right foot with unspecified severity; D45 Polycythemia vera; E11.40 Type 2 diabetes mellitus with diabetic neuropathy, unspecified; E11.621 Type 2 diabetes mellitus with foot ulcer; E11.65 Type 2 diabetes mellitus with hyperglycemia; B96.4 Proteus (mirabilis) (morganii) as the cause of diseases classified elsewhere; F32.9 Major depressive disorder, single episode, unspecified; B95.2 Enterococcus as the cause of diseases classified elsewhere; B95.62 Methicillin resistant Staphylococcus aureus infection as the cause of diseases classified elsewhere; B96.5 Pseudomonas (aeruginosa) (mallei) (pseudomallei) as the cause of diseases classified elsewhere; D50.0 Iron deficiency anemia secondary to blood loss (chronic); I25.10 Atherosclerotic heart disease of native coronary artery without angina pectoris; E03.9 Hypothyroidism, unspecified; G47.33 Obstructive sleep apnea (adult) (pediatric); I11.0 Hypertensive heart disease with heart failure; Z90.710 Acquired absence of both cervix and uterus; Z95.828 Presence of other vascular implants and grafts; Z79.82 Long term (current) use of aspirin; Z79.891 Long term (current) use of opiate analgesic; Z79.4 Long term (current) use of insulin; Z79.01 Long term (current) use of anticoagulants; Z79.899 Other long term (current) drug therapy; Z87.891 Personal history of nicotine dependence; Z86.711 Personal history of pulmonary embolism